=== PATIENT | male | born 1995 | race African-American/Black ===

== ENCOUNTER 2018-07-22 09:16 | Inpatient (IN) | payer MEDICAID, OTHER ==
[~2018-07-22] VITALS: Ht 177.8 cm; Wt 98.9 kg
[2018-07-22] VITALS (50 sets, daily range): BP systolic 50–166; BP diastolic 20–119
[2018-07-22] MEDS ORDERED: DEXAMETHASONE 10 MG/ML VIAL IV ONE (09:30)
[2018-07-22] MEDS ORDERED: CEFTRIAXONE 2 G PREMIX 50 ML IV ONE (09:30)
[2018-07-22] MEDS ORDERED: SODIUM CHLORIDE 0.9% 1000ML BAG (SEPSIS BOLUS) IV ONE (09:30)
[2018-07-22] MEDS: VANCOMYCIN 1 G PREMIX 200 ML IV SCH ×2 (09:30→15:43)
[2018-07-22 09:57] LABS: BG CARBOXYHEMOGLOBIN 0.6 % (0.5-1.5); BG DEOXYHEMOGLOBIN 1.5 % (0.0-5.0); BG FRACTION INSPIRED OXYGEN 21; BG METHEMOGLOBIN 0.4 % (0.0-1.5); BG OXYGEN SATURATION 98.5 % (92.0-98.5); BG OXYHEMOGLOBIN 97.5 % (94.0-97.0); BG PCO2 < 8.9 mmHg (35.0-45.0); BG PH 6.929 (7.350-7.450); BG PO2 153.8 mmHg (75.0-100.0); BG SAMPLE SITE RIGHT RADIAL; BG TOTAL HEMOGLOBIN 15.3 g/dL (12.0-18.0); BG VENT MODE ROOM AIR
[2018-07-22] MEDS ORDERED: SODIUM BICARBONATE 8.4% 1 MEQ/ML 50ML SYR IV ONE (10:00)
[2018-07-22 10:10] LABS: HEMATOCRIT. 48.4 % (42.0-52.0); HEMOGLOBIN. 14.7 g/dL (14.0-18.0); MEAN CORPUSCULAR HEMOGLOBIN 26.6 pg (28.0-32.0); MEAN CORPUSCULAR VOLUME 87.6 fL (80.0-94.0); PLATELET 263 x1000/uL (130-400); RED BLOOD CELL COUNT 5.52 mill/uL (4.7-6.1); RED CELL DISTRIBUTION WIDTH 15.9 % (11.6-14.6)
[2018-07-22 10:15] LABS: CHLORIDE 96 mEq/L (98-107)
[2018-07-22 10:19] LABS: ETHANOL BLOOD < 10 mg/dL
[2018-07-22 10:28] LABS: BETA HYDROXYBUTYRATE 9.5 mMol/L (0.0-0.3)
[2018-07-22 10:29] LABS: CLARITY URINE CLEAR (CLEAR); COLOR URINE YELLOW (YELLOW); KETONES URINE 3+ (NEGATIVE); LEUKOCYTE ESTERASE URINE NEGATIVE (NEGATIVE); NITRITE URINE NEGATIVE (NEGATIVE); OCCULT BLOOD URINE 2+ (NEGATIVE); PH URINE 5.5 (4.5-8.0); PROTEIN URINE 1+ (NEGATIVE); SPECIFIC GRAVITY URINE 1.021 (1.005-1.030); UROBILINOGEN URINE 0.2 E.U./dL (0.2-1.0)
[2018-07-22 10:56] LABS: *AMPHETAMINES SCREEN URINE NEGATIVE (NEGATIVE); *BARBITURATES SCREEN URINE NEGATIVE (NEGATIVE); *BENZODIAZEPINES SCREEN URINE NEGATIVE (NEGATIVE)
[2018-07-22 10:57] LABS: *COCAINE SCREEN URINE NEGATIVE (NEGATIVE); CANNABINOID URINE SCREEN NEGATIVE (NEGATIVE); METHADONE URINE SCREEN NEGATIVE (NEGATIVE); OPIATES URINE SCREEN NEGATIVE (NEGATIVE); PHENCYCLIDINE URINE SCREEN NEGATIVE (NEGATIVE)
[2018-07-22 11:00] LABS: PLATELET ESTIMATE NORMAL
[2018-07-22] MEDS ORDERED: INSULIN REGULAR (DRIP) 100 UNITS in SODIUM CHLORIDE 0.9% 100 ML IV ONE (11:00)
[2018-07-22] MEDS ORDERED: KCL 20MEQ/100ML PREMIX 100 ML IV ONE (11:15)
[2018-07-22 11:28] LABS: PARTIAL THROMBOPLASTIN TIME 33.6 sec (23.4-31.0); PROTHROMBIN TIME 10.5 sec (9.1-11.1)
[2018-07-22] MEDS ORDERED: KCL 20MEQ/100ML PREMIX 100 ML IV NR (11:30)
[2018-07-22] MEDS ORDERED: NOREPINEPHRINE 4MG/250ML PMX 250 ML IV ONE ×2 (11:35→12:15)
[2018-07-22] MEDS ORDERED: SUCCINYLCHOLINE CHLORIDE 200MG/10ML IV ONE ×2 (12:00→15:06)
[2018-07-22] MEDS ORDERED: ETOMIDATE 2MG/ML 10ML VIAL IV ONE ×2 (12:00→15:06)
[2018-07-22] MEDS ORDERED: MIDAZOLAM HCL 50 MG in DEXTROSE 5% WATER 40 ML IV ONE (12:00)
[2018-07-22] MEDS: SODIUM CHLORIDE 0.9% 1,000 ML IV SCH ×3 (12:14→20:23)
[2018-07-22] MEDS ORDERED: PIPERACILLIN/TAZ 3.375G PREMIX 50 ML IV SCH (12:15)
[2018-07-22] MEDS ORDERED: ONDANSETRON HCL 4MG/2ML INJ IV PRN (12:15)
[2018-07-22] MEDS ORDERED: CEFTRIAXONE SODIUM 1 G/VIAL IM ONE (12:45)
[2018-07-22] MEDS ORDERED: LIDOCAINE HCL 1% 20ML VIAL (Pyxis) INJ INFIL ONE (12:45)
[2018-07-22 13:11] LABS: BG BASE EXCESS -29.7 mmol/L (-2.0-2.0); BG CARBOXYHEMOGLOBIN 0.1 % (0.5-1.5); BG DEOXYHEMOGLOBIN 0.3 % (0.0-5.0); BG FRACTION INSPIRED OXYGEN 100; BG HCO3 ACT 3.7 mmol/L (22.0-26.0); BG METHEMOGLOBIN 0.5 % (0.0-1.5); BG OXYGEN SATURATION 99.7 % (92.0-98.5); BG OXYHEMOGLOBIN 99.1 % (94.0-97.0); BG PCO2 22.5 mmHg (35.0-45.0); BG PH 6.831 (7.350-7.450); BG PO2 > 602.7 mmHg (75.0-100.0); BG SAMPLE SITE RIGHT RADIAL; BG TIDAL VOLUME(mL) 550 mL; BG TOTAL HEMOGLOBIN 14.2 g/dL (12.0-18.0); BG VENT MODE VENT - A/C; BG VENT RATE 20 set
[2018-07-22] MEDS ORDERED: IPRATROPIUM/ALBUTEROL 0.5-3(2.5)MG/3ML NEB HHN PRN (13:15)
[2018-07-22] MEDS ORDERED: SODIUM BICARBONATE 150 MEQ in DEXTROSE 5% WATER 1,000 ML IV SCH ×3 (13:30)
[2018-07-22] MEDS: SODIUM BICARBONATE 8.4% 1 MEQ/ML 50ML SYR IV NR ×2 (13:30→16:00)
[2018-07-22] MEDS ORDERED: INSULIN REGULAR (DRIP) 100 UNITS in SODIUM CHLORIDE 0.9% 100 ML IV NR (15:00)
[2018-07-22] MEDS ORDERED: VECURONIUM BROMIDE 10 MG/VIAL IV ONE (15:06)
[2018-07-22 16:41] LABS: BG BASE EXCESS -19.5 mmol/L (-2.0-2.0); BG CARBOXYHEMOGLOBIN 0.2 % (0.5-1.5); BG DEOXYHEMOGLOBIN 1.4 % (0.0-5.0); BG FRACTION INSPIRED OXYGEN 40; BG HCO3 ACT 8.5 mmol/L (22.0-26.0); BG METHEMOGLOBIN 0.4 % (0.0-1.5); BG OXYGEN SATURATION 98.6 % (92.0-98.5); BG PCO2 26.8 mmHg (35.0-45.0); BG PH 7.117 (7.350-7.450); BG PO2 146.5 mmHg (75.0-100.0); BG SAMPLE SITE RIGHT BRACHIAL; BG TIDAL VOLUME(mL) 550 mL; BG TOTAL HEMOGLOBIN 12.4 g/dL (12.0-18.0); BG VENT MODE VENT - A/C; BG VENT RATE 26 set
[2018-07-22] MEDS ORDERED: SODIUM BICARBONATE 8.4% 1 MEQ/ML 50ML SYR IV SCH (17:30)
[2018-07-22] MEDS ORDERED: NOREPINEPHRINE 4MG in DEXT 5% WATER 250ML IV PRN (17:45)
[2018-07-22] MEDS: SODIUM BICARBONATE 150 MEQ in DEXTROSE 5% WATER 1,000 ML IV SCH ×6 (17:47→21:53)
[2018-07-22] MEDS ORDERED: PHENYLEPHRINE 40 MG in DEXT 5% WATER 246 ML IV PRN (18:00)
[2018-07-22] MEDS ORDERED: DEXTROSE 50% WATER 50ML SYRINGE IV PRN ×2 (18:00)
[2018-07-22] MEDS: NOREPINEPHRINE 32 MG in DEXT 5% WATER 468 ML IV PRN (18:16)
[2018-07-22] MEDS ORDERED: PROPOFOL 10MG/ML 100ML 100 ML IV PRN (18:45)
[2018-07-22] MEDS ORDERED: MIDAZOLAM HCL 100 MG in DEXT 5% WATER 80 ML IV PRN (18:45)
[2018-07-22] MEDS: BLOOD SUGAR DIAGNOSTIC STRIP TEST SCH ×6 (18:45→23:00)
[2018-07-22] MEDS: CEFTRIAXONE 2 G in DEXTROSE 5% WATER 50 ML IV SCH (19:11)
[2018-07-22] MEDS ORDERED: VANCOMYCIN 1 G PREMIX 200 ML IV SCH (20:00)
[2018-07-22] MEDS: IPRATROPIUM/ALBUTEROL 0.5-3(2.5)MG/3ML NEB HHN SCH (20:09)
[2018-07-22] MEDS: VASOPRESSIN 10 UNIT in SODIUM CHLORIDE 0.9% 99.5 ML IV PRN (20:23)
[2018-07-22] MEDS: VANCOMYCIN 1250MG in DEXTROSE 5% WATER 250ML IV SCH (20:23)
[2018-07-22] MEDS: INSULIN REGULAR (DRIP) 100 UNITS in SODIUM CHLORIDE 0.9% 100 ML IV SCH (20:35)
[2018-07-22] MEDS ORDERED: CEFTRIAXONE 2 G PREMIX 50 ML IV SCH (21:00)
[2018-07-22 21:59] LABS: BG BASE EXCESS -10.8 mmol/L (-2.0-2.0); BG CARBOXYHEMOGLOBIN 0.3 % (0.5-1.5); BG DEOXYHEMOGLOBIN 1.2 % (0.0-5.0); BG FRACTION INSPIRED OXYGEN 40; BG HCO3 ACT 13.9 mmol/L (22.0-26.0); BG METHEMOGLOBIN 0.4 % (0.0-1.5); BG OXYGEN SATURATION 98.8 % (92.0-98.5); BG OXYHEMOGLOBIN 98.1 % (94.0-97.0); BG PCO2 27.6 mmHg (35.0-45.0); BG PH 7.319 (7.350-7.450); BG PO2 186.6 mmHg (75.0-100.0); BG SAMPLE SITE RIGHT BRACHIAL; BG TIDAL VOLUME(mL) 550 mL; BG TOTAL HEMOGLOBIN 11.7 g/dL (12.0-18.0); BG VENT MODE VENT - A/C; BG VENT RATE 30 set
[2018-07-22 22:20] LABS: CHLORIDE 113 mEq/L (98-107)
[2018-07-22] MEDS: PHENYLEPHRINE 80 MG in DEXT 5% WATER 492 ML IV PRN (22:26)
[2018-07-22] MEDS ORDERED: POTASSIUM CHLORIDE 20MEQ/PACKET PO NR ×2 (23:00)
[2018-07-23] VITALS (104 sets, daily range): BP systolic 65–132; BP diastolic 28–73
[2018-07-23] MEDS: VASOPRESSIN 10 UNIT in SODIUM CHLORIDE 0.9% 99.5 ML IV PRN ×3 (00:20→14:28)
[2018-07-23] MEDS: BLOOD SUGAR DIAGNOSTIC STRIP TEST SCH ×20 (01:00→23:00)
[2018-07-23] MEDS: IPRATROPIUM/ALBUTEROL 0.5-3(2.5)MG/3ML NEB HHN SCH ×4 (01:26→20:21)
[2018-07-23] MEDS ORDERED: POTASSIUM CHLORIDE INJ 40 MEQ in DEXT 5% WATER 250 ML IV NR ×3 (04:00)
[2018-07-23 04:01] LABS: CHLORIDE 115 mEq/L (98-107)
[2018-07-23 04:03] LABS: HEMATOCRIT. 26.4 % (42.0-52.0); MEAN CORPUSCULAR HEMOGLOBIN 26.6 pg (28.0-32.0); MEAN CORPUSCULAR VOLUME 81.4 fL (80.0-94.0); MEAN PLATELET VOLUME 9.2 fl (7.4-10.4); PLATELET 159 x1000/uL (130-400); RED BLOOD CELL COUNT 3.24 mill/uL (4.7-6.1); RED CELL DISTRIBUTION WIDTH 15.1 % (11.6-14.6)
[2018-07-23 04:11] LABS: HEMOGLOBIN. 8.6 g/dL (14.0-18.0)
[2018-07-23 04:27] LABS: PHOSPHORUS 0.1 mg/dL (2.5-4.9)
[2018-07-23] MEDS: VANCOMYCIN 1250MG in DEXTROSE 5% WATER 250ML IV SCH (04:38)
[2018-07-23] MEDS ORDERED: POTASSIUM CHLORIDE 20MEQ/PACKET PO SCH ×3 (05:00→09:00)
[2018-07-23] MEDS: POTASSIUM ACETATE 40 MEQ in SODIUM CHLORIDE 0.9% 1,000 ML IV SCH ×2 (05:08→09:22)
[2018-07-23] MEDS ORDERED: POTASSIUM CHLORIDE INJ 40 MEQ in DEXT 5% WATER 250 ML IV SCH ×2 (06:00→08:00)
[2018-07-23] MEDS ORDERED: SODIUM BICARBONATE 150 MEQ in SODIUM CHLORIDE 0.9% 1,000 ML IV SCH (06:30)
[2018-07-23] MEDS: PHENYLEPHRINE 80 MG in DEXT 5% WATER 492 ML IV PRN ×2 (06:36→14:23)
[2018-07-23 06:38] LABS: PLATELET ESTIMATE NORMAL
[2018-07-23] MEDS: CEFTRIAXONE 2 G in DEXTROSE 5% WATER 50 ML IV SCH ×2 (07:58→21:46)
[2018-07-23] MEDS ORDERED: POTASSIUM PHOS M BASIC D BASIC IV SCH (08:00)
[2018-07-23] MEDS ORDERED: SODIUM CHLORIDE 0.9% IV SCH (08:00)
[2018-07-23 08:06] LABS: BG BASE EXCESS -15.3 mmol/L (-2.0-2.0); BG CARBOXYHEMOGLOBIN 0.3 % (0.5-1.5); BG DEOXYHEMOGLOBIN 1.4 % (0.0-5.0); BG FRACTION INSPIRED OXYGEN 40; BG HCO3 ACT 9.6 mmol/L (22.0-26.0); BG METHEMOGLOBIN 0.5 % (0.0-1.5); BG OXYGEN SATURATION 98.6 % (92.0-98.5); BG OXYHEMOGLOBIN 97.8 % (94.0-97.0); BG PCO2 20.6 mmHg (35.0-45.0); BG PH 7.286 (7.350-7.450); BG PO2 206.7 mmHg (75.0-100.0); BG SAMPLE SITE RIGHT RADIAL; BG TIDAL VOLUME(mL) 550 mL; BG TOTAL HEMOGLOBIN 9.2 g/dL (12.0-18.0); BG VENT MODE VENT - A/C; BG VENT RATE 30 set
[2018-07-23] MEDS ORDERED: POTASSIUM CHLORIDE IV SCH (08:30)
[2018-07-23] MEDS ORDERED: [UNRECOGNIZED DRUG - OTHER] IV SCH (08:30)
[2018-07-23] MEDS ORDERED: SODIUM BICARBONATE IV SCH (08:30)
[2018-07-23] MEDS: INSULIN GLARGINE UD 100 UNITS/ML SYR SUBCUT SCH ×2 (09:06→22:46)
[2018-07-23 10:18] LABS: CHLORIDE 117 mEq/L (98-107)
[2018-07-23] MEDS ORDERED: SODIUM CHLORIDE 0.45% 1,000 ML IV ONE ×4 (10:45→23:30)
[2018-07-23] MEDS ORDERED: KCL 20MEQ/100ML PREMIX 100 ML IV SCH (12:00)
[2018-07-23] MEDS ORDERED: POTASSIUM CHLORIDE INJ 40 MEQ in SODIUM CHLORIDE 0.45% 1,000 ML IV SCH (12:00)
[2018-07-23 12:17] LABS: CHLORIDE 120 mEq/L (98-107)
[2018-07-23] MEDS: NOREPINEPHRINE 32 MG in DEXT 5% WATER 468 ML IV PRN (12:49)
[2018-07-23] MEDS ORDERED: POTASSIUM CHLORIDE 20MEQ/PACKET NG SCH (13:00)
[2018-07-23 13:03] LABS: PHOSPHORUS 1.1 mg/dL (2.5-4.9)
[2018-07-23 13:05] LABS: VANCOMYCIN TROUGH 31.4 ug/mL (5.0-10.0)
[2018-07-23 13:07] LABS: CREATINE KINASE MB FRACTION 62.9 ng/mL (0.5-3.6)
[2018-07-23] MEDS ORDERED: KCL 20MEQ/100ML PREMIX 100 ML IV NR ×2 (14:00→22:00)
[2018-07-23] MEDS ORDERED: POTASSIUM CHLORIDE INJ 40 MEQ in DEXT 5% WATER 250 ML IV ONE (15:00)
[2018-07-23] MEDS ORDERED: MAGNESIUM SULFATE 4G IN WATER 100ML PREMIX IV ONE (15:26)
[2018-07-23] MEDS ORDERED: CALCIUM CHLORIDE 1GM/10ML SYR IV ONE (15:26)
[2018-07-23] MEDS ORDERED: EPINEPHRINE 0.1MG/ML (1:10,000) 10ML SYR ONE (15:26)
[2018-07-23] MEDS ORDERED: POTASSIUM PHOS,M-BASIC-D-BASIC 15 MMOL in DEXT 5% WATER 245 ML IV NR (16:00)
[2018-07-23] MEDS ORDERED: SODIUM CHLORIDE 0.45% 1,000 ML IV SCH ×2 (16:26→18:15)
[2018-07-23] MEDS: KCL 20MEQ/100ML PREMIX 100 ML IV SCH ×2 (16:55→18:55)
[2018-07-23] MEDS: INSULIN REGULAR (DRIP) 100 UNITS in SODIUM CHLORIDE 0.9% 100 ML IV SCH (17:00)
[2018-07-23 17:07] LABS: CHLORIDE 121 mEq/L (98-107); HEMATOCRIT. 30.1 % (42.0-52.0); HEMOGLOBIN. 9.9 g/dL (14.0-18.0); MEAN CORPUSCULAR HEMOGLOBIN 26.1 pg (28.0-32.0); MEAN CORPUSCULAR VOLUME 79.7 fL (80.0-94.0); MEAN PLATELET VOLUME 9.1 fl (7.4-10.4); PLATELET 176 x1000/uL (130-400); RED BLOOD CELL COUNT 3.78 mill/uL (4.7-6.1); RED CELL DISTRIBUTION WIDTH 15.3 % (11.6-14.6)
[2018-07-23 17:16] LABS: T4 FREE 1.04 ng/dL (0.76-1.46)
[2018-07-23 18:26] LABS: PLATELET ESTIMATE NORMAL
[2018-07-23] MEDS ORDERED: DESMOPRESSIN ACETATE IVPB 1 MCG in SODIUM CHLORIDE 0.9% 50 ML IV NR (19:00)
[2018-07-23] MEDS: POTASSIUM CHLORIDE INJ 40 MEQ in SODIUM CHLORIDE 0.45% 1,000 ML IV SCH (19:58)
[2018-07-23 20:22] LABS: CHLORIDE 126 mEq/L (98-107)
[2018-07-23] MEDS ORDERED: VANCOMYCIN 1 G PREMIX 200 ML IV SCH (21:00)
[2018-07-23] MEDS: AMPICILLIN 2,000 MG in SODIUM CHLORIDE 0.9% 100 ML IV SCH (21:46)
[2018-07-24] VITALS (95 sets, daily range): BP systolic 86–124; BP diastolic 38–79
[2018-07-24] MEDS ORDERED: POTASSIUM CHLORIDE INJ 40 MEQ in DEXT 5% WATER 250 ML IV NR ×2
[2018-07-24] MEDS: BLOOD SUGAR DIAGNOSTIC STRIP TEST SCH ×17 (01:00→20:45)
[2018-07-24] MEDS: PHENYLEPHRINE 80 MG in DEXT 5% WATER 492 ML IV PRN (01:50)
[2018-07-24] MEDS: IPRATROPIUM/ALBUTEROL 0.5-3(2.5)MG/3ML NEB HHN SCH ×4 (01:56→20:01)
[2018-07-24] MEDS: POTASSIUM CHLORIDE INJ 40 MEQ in SODIUM CHLORIDE 0.45% 1,000 ML IV SCH ×3 (02:13→20:28)
[2018-07-24] MEDS: AMPICILLIN 2,000 MG in SODIUM CHLORIDE 0.9% 100 ML IV SCH ×4 (02:15→20:28)
[2018-07-24 02:26] LABS: CHLORIDE 126 mEq/L (98-107)
[2018-07-24 05:20] LABS: HEMOGLOBIN. 9.5 g/dL (14.0-18.0); MEAN CORPUSCULAR HEMOGLOBIN 26.4 pg (28.0-32.0); PLATELET 156 x1000/uL (130-400); RED BLOOD CELL COUNT 3.59 mill/uL (4.7-6.1); RED CELL DISTRIBUTION WIDTH 15.5 % (11.6-14.6)
[2018-07-24 05:35] LABS: CHLORIDE 129 mEq/L (98-107)
[2018-07-24 05:48] LABS: CREATINE KINASE MB FRACTION 52.9 ng/mL (0.5-3.6)
[2018-07-24 05:50] LABS: PHOSPHORUS 0.4 mg/dL (2.5-4.9)
[2018-07-24] MEDS: INSULIN REGULAR (DRIP) 100 UNITS in SODIUM CHLORIDE 0.9% 100 ML IV SCH ×2 (06:53→11:51)
[2018-07-24] MEDS ORDERED: DESMOPRESSIN ACETATE IVPB 1 MCG in SODIUM CHLORIDE 0.9% 50 ML IV NR ×2 (07:00→14:00)
[2018-07-24] MEDS ORDERED: POTASSIUM PHOS,M-BASIC-D-BASIC 20 MMOL in DEXT 5% WATER 243.3333 ML IV NR (07:00)
[2018-07-24] MEDS: NOREPINEPHRINE 32 MG in DEXT 5% WATER 468 ML IV PRN (07:58)
[2018-07-24 08:00] LABS: CREATINE KINASE 34329 IU/L (39-308)
[2018-07-24 08:11] LABS: CHLORIDE 130 mEq/L (98-107)
[2018-07-24 08:17] LABS: BG BASE EXCESS -5.8 mmol/L (-2.0-2.0); BG CARBOXYHEMOGLOBIN 0.3 % (0.5-1.5); BG DEOXYHEMOGLOBIN 1.4 % (0.0-5.0); BG FRACTION INSPIRED OXYGEN 40; BG HCO3 ACT 16.8 mmol/L (22.0-26.0); BG METHEMOGLOBIN 0.3 % (0.0-1.5); BG OXYGEN SATURATION 98.6 % (92.0-98.5); BG PCO2 23.6 mmHg (35.0-45.0); BG PO2 211.5 mmHg (75.0-100.0); BG SAMPLE SITE RIGHT RADIAL; BG TIDAL VOLUME(mL) 550 mL; BG TOTAL HEMOGLOBIN 8.8 g/dL (12.0-18.0); BG VENT MODE VENT - A/C; BG VENT RATE 30 set
[2018-07-24] MEDS ORDERED: SODIUM CHLORIDE 0.45% 1,000 ML IV NR (08:45)
[2018-07-24] MEDS: CEFTRIAXONE 2 G in DEXTROSE 5% WATER 50 ML IV SCH ×2 (09:13→20:30)
[2018-07-24] MEDS: INSULIN GLARGINE UD 100 UNITS/ML SYR SUBCUT SCH ×2 (09:39→21:46)
[2018-07-24] MEDS: VANCOMYCIN 1500MG in DEXTROSE 5% WATER 250ML IV SCH (11:44)
[2018-07-24 13:19] LABS: CHLORIDE 127 mEq/L (98-107)
[2018-07-24] MEDS: METRONIDAZOLE 500 MG PREMIX 100 ML IV SCH ×2 (14:56→21:45)
[2018-07-24] MEDS: ASPIRIN 81MG TABLET PO SCH (15:25)
[2018-07-24 16:23] LABS: PLATELET ESTIMATE NORMAL
[2018-07-24] MEDS: INSULIN LISPRO 100 UNITS/ML SUBCUT SCH ×2 (16:52→20:45)
[2018-07-24 22:40] LABS: CHLORIDE 122 mEq/L (98-107)
[2018-07-24 22:46] LABS: PHOSPHORUS 1.4 mg/dL (2.5-4.9)
[2018-07-25] VITALS (61 sets, daily range): BP systolic 90–124; BP diastolic 37–81
[2018-07-25] MEDS: IPRATROPIUM/ALBUTEROL 0.5-3(2.5)MG/3ML NEB HHN SCH ×3 (01:56→21:08)
[2018-07-25] MEDS: AMPICILLIN 2,000 MG in SODIUM CHLORIDE 0.9% 100 ML IV SCH ×4 (02:23→20:07)
[2018-07-25] MEDS: METRONIDAZOLE 500 MG PREMIX 100 ML IV SCH ×3 (05:03→22:05)
[2018-07-25 05:30] LABS: BASOPHILS % 0.2 % (0.0-2.0); HEMATOCRIT. 25.5 % (42.0-52.0); HEMOGLOBIN. 8.2 g/dL (14.0-18.0); LYMPHOCYTES % 7.8 % (20.0-50.0); MEAN CORPUSCULAR HEMOGLOBIN 26.1 pg (28.0-32.0); MEAN CORPUSCULAR VOLUME 81.5 fL (80.0-94.0); MEAN PLATELET VOLUME 10.6 fl (7.4-10.4); MONOCYTES % 7.8 % (2.0-8.0); NEUTROPHILS % 84.2 % (40.0-76.0); PLATELET 141 x1000/uL (130-400); RED BLOOD CELL COUNT 3.13 mill/uL (4.7-6.1); RED CELL DISTRIBUTION WIDTH 16.4 % (11.6-14.6)
[2018-07-25 05:33] LABS: CHLORIDE 121 mEq/L (98-107)
[2018-07-25] MEDS: PROPOFOL 10MG/ML 100ML 100 ML IV PRN ×3 (05:37→16:28)
[2018-07-25 05:41] LABS: PHOSPHORUS 1.6 mg/dL (2.5-4.9)
[2018-07-25] MEDS: VANCOMYCIN 1500MG in DEXTROSE 5% WATER 250ML IV SCH (06:30)
[2018-07-25] MEDS: BLOOD SUGAR DIAGNOSTIC STRIP TEST SCH ×4 (06:30→21:00)
[2018-07-25 07:58] LABS: BG BASE EXCESS -11.7 mmol/L (-2.0-2.0); BG CARBOXYHEMOGLOBIN 0.2 % (0.5-1.5); BG DEOXYHEMOGLOBIN 1.7 % (0.0-5.0); BG FRACTION INSPIRED OXYGEN 40; BG HCO3 ACT 10.5 mmol/L (22.0-26.0); BG METHEMOGLOBIN 0.6 % (0.0-1.5); BG OXYGEN SATURATION 98.3 % (92.0-98.5); BG OXYHEMOGLOBIN 97.5 % (94.0-97.0); BG PCO2 16.1 mmHg (35.0-45.0); BG PH 7.433 (7.350-7.450); BG PO2 179.4 mmHg (75.0-100.0); BG SAMPLE SITE RIGHT RADIAL; BG TIDAL VOLUME(mL) 550 mL; BG TOTAL HEMOGLOBIN 9.7 g/dL (12.0-18.0); BG VENT MODE VENT - A/C; BG VENT RATE 24 set
[2018-07-25] MEDS: ASPIRIN 81MG TABLET PO SCH (08:15)
[2018-07-25] MEDS ORDERED: DEXTROSE 50% WATER 50ML SYRINGE IV PRN (08:15)
[2018-07-25] MEDS ORDERED: INSULIN LISPRO 100 UNITS/ML SUBCUT NR (08:16)
[2018-07-25] MEDS: INSULIN GLARGINE UD 100 UNITS/ML SYR SUBCUT SCH ×2 (08:59→22:07)
[2018-07-25] MEDS: CEFTRIAXONE 2 G in DEXTROSE 5% WATER 50 ML IV SCH ×2 (08:59→22:05)
[2018-07-25] MEDS ORDERED: POTASSIUM CHLORIDE INJ 20 MEQ in SODIUM CHLORIDE 0.45% 1,000 ML IV SCH (09:12)
[2018-07-25] MEDS ORDERED: SODIUM CHLORIDE 0.45% 1,000 ML IV ONE (09:15)
[2018-07-25] MEDS ORDERED: DESMOPRESSIN ACETATE IV SCH (10:00)
[2018-07-25] MEDS ORDERED: POTASSIUM PHOS,M-BASIC-D-BASIC 20 MMOL in DEXT 5% WATER 243.3333 ML IV SCH (10:00)
[2018-07-25] MEDS ORDERED: SODIUM CHLORIDE 0.9% IV SCH (10:00)
[2018-07-25] MEDS: INSULIN LISPRO 100 UNITS/ML SUBCUT SCH ×5 (13:06→22:06)
[2018-07-25] MEDS ORDERED: PROPOFOL 10MG/ML 100ML 100 ML IV PRN (15:15)
[2018-07-25] MEDS: SODIUM CHL 0.45% + KCL 20MEQ/L 1,000 ML IV SCH ×2 (17:30→22:08)
[2018-07-25 17:33] LABS: BG BASE EXCESS -4.5 mmol/L (-2.0-2.0); BG CARBOXYHEMOGLOBIN 0.3 % (0.5-1.5); BG DEOXYHEMOGLOBIN 1.5 % (0.0-5.0); BG FRACTION INSPIRED OXYGEN 40; BG HCO3 ACT 17.9 mmol/L (22.0-26.0); BG METHEMOGLOBIN 0.5 % (0.0-1.5); BG OXYGEN SATURATION 98.5 % (92.0-98.5); BG OXYHEMOGLOBIN 97.7 % (94.0-97.0); BG PCO2 24.5 mmHg (35.0-45.0); BG PH 7.482 (7.350-7.450); BG PO2 182.4 mmHg (75.0-100.0); BG SAMPLE SITE RIGHT BRACHIAL; BG TIDAL VOLUME(mL) 550 mL; BG TOTAL HEMOGLOBIN 9.4 g/dL (12.0-18.0); BG VENT MODE VENT - A/C; BG VENT RATE 16 set
[2018-07-25 22:36] LABS: CHLORIDE 122 mEq/L (98-107)
[2018-07-26] VITALS (36 sets, daily range): BP systolic 84–122; BP diastolic 31–77
[2018-07-26] MEDS: IPRATROPIUM/ALBUTEROL 0.5-3(2.5)MG/3ML NEB HHN SCH ×4 (01:15→20:55)
[2018-07-26] MEDS: AMPICILLIN 2,000 MG in SODIUM CHLORIDE 0.9% 100 ML IV SCH ×3 (02:58→13:56)
[2018-07-26] MEDS: SODIUM CHL 0.45% + KCL 20MEQ/L 1,000 ML IV SCH (05:33)
[2018-07-26] MEDS: METRONIDAZOLE 500 MG PREMIX 100 ML IV SCH ×3 (05:33→21:17)
[2018-07-26 05:38] LABS: BASOPHILS % 0.1 % (0.0-2.0); EOSINOPHILS % 0.3 % (0.0-5.0); HEMATOCRIT. 25.3 % (42.0-52.0); HEMOGLOBIN. 8.3 g/dL (14.0-18.0); LYMPHOCYTES % 7.4 % (20.0-50.0); MEAN CORPUSCULAR HEMOGLOBIN 26.8 pg (28.0-32.0); MEAN CORPUSCULAR VOLUME 81.9 fL (80.0-94.0); MEAN PLATELET VOLUME 9.9 fl (7.4-10.4); NEUTROPHILS % 81.2 % (40.0-76.0); PLATELET 146 x1000/uL (130-400); RED BLOOD CELL COUNT 3.09 mill/uL (4.7-6.1)
[2018-07-26 05:46] LABS: CHLORIDE 119 mEq/L (98-107)
[2018-07-26] MEDS: BLOOD SUGAR DIAGNOSTIC STRIP TEST SCH ×4 (06:19→21:07)
[2018-07-26] MEDS: INSULIN LISPRO 100 UNITS/ML SUBCUT SCH ×7 (06:26→21:16)
[2018-07-26 07:48] LABS: BG BASE EXCESS -4.4 mmol/L (-2.0-2.0); BG CARBOXYHEMOGLOBIN 0.2 % (0.5-1.5); BG DEOXYHEMOGLOBIN 1.2 % (0.0-5.0); BG HCO3 ACT 18.5 mmol/L (22.0-26.0); BG METHEMOGLOBIN 0.3 % (0.0-1.5); BG OXYGEN SATURATION 98.8 % (92.0-98.5); BG OXYHEMOGLOBIN 98.3 % (94.0-97.0); BG PCO2 26.1 mmHg (35.0-45.0); BG PH 7.468 (7.350-7.450); BG PO2 164.8 mmHg (75.0-100.0); BG SAMPLE SITE RIGHT BRACHIAL; BG TIDAL VOLUME(mL) 550 mL; BG TOTAL HEMOGLOBIN 8.6 g/dL (12.0-18.0); BG VENT MODE VENT - A/C; BG VENT RATE 16 set
[2018-07-26] MEDS: ASPIRIN 81MG TABLET PO SCH (08:28)
[2018-07-26] MEDS ORDERED: SODIUM CHLORIDE 0.45% 1,000 ML IV NR (09:00)
[2018-07-26] MEDS ORDERED: POTASSIUM PHOS,M-BASIC-D-BASIC 15 MMOL in DEXT 5% WATER 245 ML IV SCH (09:00)
[2018-07-26] MEDS: CEFTRIAXONE 2 G in DEXTROSE 5% WATER 50 ML IV SCH ×2 (10:02→21:16)
[2018-07-26] MEDS: INSULIN GLARGINE UD 100 UNITS/ML SYR SUBCUT SCH ×2 (10:03→21:20)
[2018-07-26] MEDS: DEXT 5% WATER + KCL 20MEQ/L 1,000 ML IV SCH (12:42)
[2018-07-26] MEDS ORDERED: POTASSIUM CHLORIDE 20MEQ/PACKET NG NR (14:30)
[2018-07-26 14:33] LABS: BG BASE EXCESS 0.5 mmol/L (-2.0-2.0); BG CARBOXYHEMOGLOBIN 0.3 % (0.5-1.5); BG CPAP (cmH2O) 0 cm(H2O); BG HCO3 ACT 23.2 mmol/L (22.0-26.0); BG METHEMOGLOBIN 0.4 % (0.0-1.5); BG OXYHEMOGLOBIN 96.3 % (94.0-97.0); BG PCO2 29.3 mmHg (35.0-45.0); BG PH 7.516 (7.350-7.450); BG PO2 93.1 mmHg (75.0-100.0); BG SAMPLE SITE RIGHT RADIAL; BG TOTAL HEMOGLOBIN 7.7 g/dL (12.0-18.0); BG VENT MODE VENT - CPAP
[2018-07-26 15:29] LABS: CHLORIDE 117 mEq/L (98-107)
[2018-07-26] MEDS ORDERED: DESMOPRESSIN ACETATE IVPB 2 MCG in SODIUM CHLORIDE 0.9% 50 ML IV NR (15:30)
[2018-07-26] MEDS: VANCOMYCIN 1500MG in DEXTROSE 5% WATER 250ML IV SCH ×3 (17:56)
[2018-07-26] MEDS: PROPOFOL 10MG/ML 100ML 100 ML IV SCH (20:57)
[2018-07-26 22:58] LABS: CHLORIDE 114 mEq/L (98-107)
[2018-07-27] VITALS (91 sets, daily range): BP systolic 79–135; BP diastolic 31–92
[2018-07-27] MEDS: DEXT 5% WATER + KCL 20MEQ/L 1,000 ML IV SCH ×2 (00:52→20:31)
[2018-07-27] MEDS: PROPOFOL 10MG/ML 100ML 100 ML IV SCH ×3 (00:52→08:44)
[2018-07-27] MEDS: IPRATROPIUM/ALBUTEROL 0.5-3(2.5)MG/3ML NEB HHN SCH ×4 (02:03→21:02)
[2018-07-27 05:41] LABS: HEMATOCRIT. 21.6 % (42.0-52.0); HEMOGLOBIN. 7.1 g/dL (14.0-18.0); MEAN CORPUSCULAR HEMOGLOBIN 27.3 pg (28.0-32.0); MEAN CORPUSCULAR VOLUME 83.2 fL (80.0-94.0); MEAN PLATELET VOLUME 9.7 fl (7.4-10.4); PLATELET 171 x1000/uL (130-400); RED BLOOD CELL COUNT 2.59 mill/uL (4.7-6.1); RED CELL DISTRIBUTION WIDTH 15.8 % (11.6-14.6)
[2018-07-27 05:43] LABS: CHLORIDE 113 mEq/L (98-107)
[2018-07-27 05:50] LABS: PHOSPHORUS 1.8 mg/dL (2.5-4.9)
[2018-07-27] MEDS: INSULIN LISPRO 100 UNITS/ML SUBCUT SCH ×7 (06:33→21:27)
[2018-07-27] MEDS: BLOOD SUGAR DIAGNOSTIC STRIP TEST SCH ×4 (06:35→21:27)
[2018-07-27] MEDS: METRONIDAZOLE 500 MG PREMIX 100 ML IV SCH ×3 (06:35→21:25)
[2018-07-27] MEDS ORDERED: POTASSIUM CHLORIDE 20MEQ/PACKET PO NR (08:00)
[2018-07-27] MEDS: ASPIRIN 81MG TABLET PO SCH (08:45)
[2018-07-27] MEDS: CEFTRIAXONE 2 G in DEXTROSE 5% WATER 50 ML IV SCH ×2 (08:45→21:25)
[2018-07-27] MEDS ORDERED: POTASSIUM PHOS,M-BASIC-D-BASIC 20 MMOL in DEXT 5% WATER 250 ML IV NR (09:00)
[2018-07-27] MEDS ORDERED: MAGNESIUM 2 G PREMIX 50 ML IV NR (09:00)
[2018-07-27] MEDS: INSULIN GLARGINE UD 100 UNITS/ML SYR SUBCUT SCH ×2 (09:45→21:29)
[2018-07-27] MEDS ORDERED: LORAZEPAM 2MG/ML CPJ IV PRN ×2 (10:00→17:30)
[2018-07-27] MEDS ORDERED: MORPHINE SULFATE 4 MG/ML CPJ (NOT FOR IM USE) IV PRN (10:00)
[2018-07-27 10:56] LABS: NUCLEATED RED BLOOD CELLS 4 /100 WBC
[2018-07-27 10:57] LABS: PLATELET ESTIMATE NORMAL
[2018-07-27 11:29] LABS: BG BASE EXCESS 1.8 mmol/L (-2.0-2.0); BG CARBOXYHEMOGLOBIN 0.5 % (0.5-1.5); BG DEOXYHEMOGLOBIN 1.3 % (0.0-5.0); BG FRACTION INSPIRED OXYGEN 35; BG HCO3 ACT 24.8 mmol/L (22.0-26.0); BG METHEMOGLOBIN 0.6 % (0.0-1.5); BG OXYGEN SATURATION 98.7 % (92.0-98.5); BG OXYHEMOGLOBIN 97.6 % (94.0-97.0); BG PH 7.508 (7.350-7.450); BG PO2 143.8 mmHg (75.0-100.0); BG SAMPLE SITE LEFT RADIAL; BG TIDAL VOLUME(mL) 550 mL; BG TOTAL HEMOGLOBIN 7.4 g/dL (12.0-18.0); BG VENT MODE VENT - A/C; BG VENT RATE 12 set
[2018-07-27] MEDS: VANCOMYCIN 1500MG in DEXTROSE 5% WATER 250ML IV SCH (13:11)
[2018-07-27 13:43] LABS: BG BASE EXCESS 1.1 mmol/L (-2.0-2.0); BG CARBOXYHEMOGLOBIN 0.8 % (0.5-1.5); BG DEOXYHEMOGLOBIN 2.3 % (0.0-5.0); BG FRACTION INSPIRED OXYGEN 35; BG METHEMOGLOBIN 0.6 % (0.0-1.5); BG OXYGEN SATURATION 97.7 % (92.0-98.5); BG OXYHEMOGLOBIN 96.3 % (94.0-97.0); BG PCO2 30.7 mmHg (35.0-45.0); BG PH 7.511 (7.350-7.450); BG PO2 100.3 mmHg (75.0-100.0); BG PRESSURE SUPPORT 8; BG SAMPLE SITE LEFT RADIAL; BG TOTAL HEMOGLOBIN 7.1 g/dL (12.0-18.0); BG VENT MODE VENT - CPAP
[2018-07-27 14:45] LABS: CHLORIDE 110 mEq/L (98-107)
[2018-07-27] MEDS: DESMOPRESSIN ACETATE IVPB 2 MCG in SODIUM CHLORIDE 0.9% 50 ML IV SCH (16:08)
[2018-07-27] MEDS ORDERED: SODIUM CHLORIDE 0.9% 1,000 ML IV ONE (20:15)
[2018-07-27] MEDS: ACETAMINOPHEN 650MG/20.3ML UDC NG PRN (20:29)
[2018-07-28] VITALS (104 sets, daily range): BP systolic 76–131; BP diastolic 31–91
[2018-07-28 00:25] LABS: CHLORIDE 109 mEq/L (98-107)
[2018-07-28] MEDS: VANCOMYCIN 1500MG in DEXTROSE 5% WATER 250ML IV SCH ×3 (01:02→23:19)
[2018-07-28] MEDS: IPRATROPIUM/ALBUTEROL 0.5-3(2.5)MG/3ML NEB HHN SCH ×4 (02:43→21:10)
[2018-07-28 05:58] LABS: CHLORIDE 106 mEq/L (98-107)
[2018-07-28] MEDS: METRONIDAZOLE 500 MG PREMIX 100 ML IV SCH (05:59)
[2018-07-28] MEDS: BLOOD SUGAR DIAGNOSTIC STRIP TEST SCH ×4 (06:00→21:27)
[2018-07-28] MEDS: INSULIN LISPRO 100 UNITS/ML SUBCUT SCH ×7 (06:01→21:36)
[2018-07-28 06:09] LABS: PHOSPHORUS 3.2 mg/dL (2.5-4.9)
[2018-07-28 07:15] LABS: HEMATOCRIT. 22.7 % (42.0-52.0); HEMOGLOBIN. 7.1 g/dL (14.0-18.0); MEAN CORPUSCULAR HEMOGLOBIN 27.6 pg (28.0-32.0); MEAN CORPUSCULAR VOLUME 88.4 fL (80.0-94.0); PLATELET 210 x1000/uL (130-400); RED BLOOD CELL COUNT 2.57 mill/uL (4.7-6.1)
[2018-07-28 09:01] LABS: NUCLEATED RED BLOOD CELLS 8 /100 WBC; PLATELET ESTIMATE NORMAL
[2018-07-28] MEDS: PROPOFOL 10MG/ML 100ML 100 ML IV PRN ×2 (09:40→20:52)
[2018-07-28] MEDS: CEFTRIAXONE 2 G in DEXTROSE 5% WATER 50 ML IV SCH ×2 (10:07→21:33)
[2018-07-28] MEDS: POTASSIUM CHLORIDE 20MEQ/PACKET PO SCH ×2 (10:07→18:47)
[2018-07-28] MEDS: INSULIN GLARGINE UD 100 UNITS/ML SYR SUBCUT SCH ×2 (10:09→21:36)
[2018-07-28] MEDS: ACETAMINOPHEN 650MG/20.3ML UDC NG PRN (10:34)
[2018-07-28 11:00] LABS: BG BASE EXCESS 2.9 mmol/L (-2.0-2.0); BG CARBOXYHEMOGLOBIN 0.3 % (0.5-1.5); BG DEOXYHEMOGLOBIN 1.8 % (0.0-5.0); BG FRACTION INSPIRED OXYGEN 100; BG HCO3 ACT 26.4 mmol/L (22.0-26.0); BG METHEMOGLOBIN 1.1 % (0.0-1.5); BG OXYGEN SATURATION 98.2 % (92.0-98.5); BG OXYHEMOGLOBIN 96.8 % (94.0-97.0); BG PCO2 35.6 mmHg (35.0-45.0); BG PH 7.488 (7.350-7.450); BG PO2 134.7 mmHg (75.0-100.0); BG SAMPLE SITE RIGHT RADIAL; BG TIDAL VOLUME(mL) 550 mL; BG TOTAL HEMOGLOBIN 7.3 g/dL (12.0-18.0); BG VENT MODE VENT - A/C; BG VENT RATE 16 set
[2018-07-28] MEDS: DESMOPRESSIN ACETATE IVPB 2 MCG in SODIUM CHLORIDE 0.9% 50 ML IV SCH (12:00)
[2018-07-28] MEDS ORDERED: VECURONIUM BROMIDE 10 MG/VIAL IV ONE (13:39)
[2018-07-28] MEDS ORDERED: SODIUM CHLORIDE 0.9% 10ML VIAL ONE (13:39)
[2018-07-28] MEDS ORDERED: ETOMIDATE 2MG/ML 10ML VIAL IV ONE (13:39)
[2018-07-28] MEDS ORDERED: ACETAMINOPHEN 650MG/20.3ML UDC PO NR (14:30)
[2018-07-28 15:51] LABS: CHLORIDE 109 mEq/L (98-107)
[2018-07-28 23:31] LABS: CHLORIDE 112 mEq/L (98-107)
[2018-07-29] VITALS (109 sets, daily range): BP systolic 76–143; BP diastolic 18–85
[2018-07-29] MEDS: METRONIDAZOLE 500 MG PREMIX 100 ML IV SCH ×3 (01:05→19:08)
[2018-07-29] MEDS: IPRATROPIUM/ALBUTEROL 0.5-3(2.5)MG/3ML NEB HHN SCH ×4 (02:13→19:50)
[2018-07-29] MEDS: BLOOD SUGAR DIAGNOSTIC STRIP TEST SCH ×4 (05:59→21:08)
[2018-07-29] MEDS: INSULIN LISPRO 100 UNITS/ML SUBCUT SCH ×7 (06:04→21:20)
[2018-07-29] MEDS: PROPOFOL 10MG/ML 100ML 100 ML IV PRN ×3 (06:11→19:57)
[2018-07-29 06:14] LABS: HEMATOCRIT. 22.9 % (42.0-52.0); HEMOGLOBIN. 7.4 g/dL (14.0-18.0); MEAN CORPUSCULAR HEMOGLOBIN 28.4 pg (28.0-32.0); MEAN CORPUSCULAR VOLUME 88.3 fL (80.0-94.0); MEAN PLATELET VOLUME 9.7 fl (7.4-10.4); PLATELET 225 x1000/uL (130-400); RED BLOOD CELL COUNT 2.59 mill/uL (4.7-6.1); RED CELL DISTRIBUTION WIDTH 14.7 % (11.6-14.6)
[2018-07-29 06:29] LABS: CHLORIDE 109 mEq/L (98-107)
[2018-07-29 06:50] LABS: PHOSPHORUS 2.8 mg/dL (2.5-4.9)
[2018-07-29 07:12] LABS: NUCLEATED RED BLOOD CELLS 1 /100 WBC
[2018-07-29 07:13] LABS: PLATELET ESTIMATE NORMAL
[2018-07-29 08:23] LABS: BG BASE EXCESS 2.7 mmol/L (-2.0-2.0); BG CARBOXYHEMOGLOBIN 0.3 % (0.5-1.5); BG DEOXYHEMOGLOBIN 5.1 % (0.0-5.0); BG METHEMOGLOBIN 0.4 % (0.0-1.5); BG OXYGEN SATURATION 94.9 % (92.0-98.5); BG OXYHEMOGLOBIN 94.2 % (94.0-97.0); BG PCO2 34.8 mmHg (35.0-45.0); BG PH 7.492 (7.350-7.450); BG PO2 82.5 mmHg (75.0-100.0); BG SAMPLE SITE RIGHT RADIAL; BG TIDAL VOLUME(mL) 550 mL; BG TOTAL HEMOGLOBIN 7.9 g/dL (12.0-18.0); BG VENT MODE VENT - A/C; BG VENT RATE 14 set
[2018-07-29 08:32] LABS: T4 FREE 1.53 ng/dL (0.76-1.46)
[2018-07-29] MEDS: POTASSIUM CHLORIDE 20MEQ/PACKET PO SCH ×2 (09:49→19:06)
[2018-07-29] MEDS: ACETAMINOPHEN 650MG/20.3ML UDC NG PRN ×2 (09:50→23:55)
[2018-07-29] MEDS: CEFTRIAXONE 2 G in DEXTROSE 5% WATER 50 ML IV SCH ×2 (09:50→21:17)
[2018-07-29] MEDS ORDERED: SODIUM CHLORIDE 0.9% 500 ML IV ONE (10:00)
[2018-07-29] MEDS: INSULIN GLARGINE UD 100 UNITS/ML SYR SUBCUT SCH ×2 (10:47→21:21)
[2018-07-29] MEDS: DESMOPRESSIN ACETATE IVPB 2 MCG in SODIUM CHLORIDE 0.9% 50 ML IV SCH (11:38)
[2018-07-29] MEDS: VANCOMYCIN 1,750 MG in DEXT 5% WATER 500 ML IV SCH ×2 (13:31→21:18)
[2018-07-29] MEDS: PANTOPRAZOLE SODIUM 40 MG/VIAL IV SCH (13:39)
[2018-07-29] MEDS ORDERED: METOPROLOL TARTRATE 25MG TABLET PO SCH ×2 (14:12→15:15)
[2018-07-29 15:22] LABS: CHLORIDE 110 mEq/L (98-107)
[2018-07-29] MEDS ORDERED: METOPROLOL TARTRATE 25MG TABLET NG NR (21:00)
[2018-07-29 22:00] LABS: CLARITY URINE CLOUDY (CLEAR); COLOR URINE YELLOW (YELLOW); KETONES URINE 1+ (NEGATIVE); LEUKOCYTE ESTERASE URINE NEGATIVE (NEGATIVE); NITRITE URINE NEGATIVE (NEGATIVE); OCCULT BLOOD URINE 2+ (NEGATIVE); PH URINE 5.5 (4.5-8.0); PROTEIN URINE 1+ (NEGATIVE); SPECIFIC GRAVITY URINE 1.031 (1.005-1.030); UROBILINOGEN URINE 0.2 E.U./dL (0.2-1.0)
[2018-07-30] VITALS (102 sets, daily range): BP systolic 89–160; BP diastolic 35–123
[2018-07-30] MEDS: IPRATROPIUM/ALBUTEROL 0.5-3(2.5)MG/3ML NEB HHN SCH ×4 (01:55→19:56)
[2018-07-30] MEDS: METRONIDAZOLE 500 MG PREMIX 100 ML IV SCH ×3 (01:56→19:13)
[2018-07-30] MEDS: PROPOFOL 10MG/ML 100ML 100 ML IV PRN ×2 (01:56→19:13)
[2018-07-30 05:44] LABS: BASOPHILS % 0.2 % (0.0-2.0); HEMATOCRIT. 22.1 % (42.0-52.0); LYMPHOCYTES % 13.4 % (20.0-50.0); MEAN CORPUSCULAR HEMOGLOBIN 28.2 pg (28.0-32.0); MEAN CORPUSCULAR VOLUME 89.3 fL (80.0-94.0); MEAN PLATELET VOLUME 9.7 fl (7.4-10.4); MONOCYTES % 5.8 % (2.0-8.0); NEUTROPHILS % 79.6 % (40.0-76.0); PLATELET 240 x1000/uL (130-400); RED BLOOD CELL COUNT 2.47 mill/uL (4.7-6.1); RED CELL DISTRIBUTION WIDTH 14.5 % (11.6-14.6)
[2018-07-30 05:57] LABS: CHLORIDE 106 mEq/L (98-107)
[2018-07-30] MEDS: BLOOD SUGAR DIAGNOSTIC STRIP TEST SCH ×4 (05:59→21:13)
[2018-07-30] MEDS: INSULIN LISPRO 100 UNITS/ML SUBCUT SCH ×7 (06:09→21:34)
[2018-07-30 08:21] LABS: BG BASE EXCESS 3.3 mmol/L (-2.0-2.0); BG CARBOXYHEMOGLOBIN 0.3 % (0.5-1.5); BG DEOXYHEMOGLOBIN 6.1 % (0.0-5.0); BG FRACTION INSPIRED OXYGEN 40; BG HCO3 ACT 26.7 mmol/L (22.0-26.0); BG METHEMOGLOBIN 0.6 % (0.0-1.5); BG OXYGEN SATURATION 93.8 % (92.0-98.5); BG PCO2 35.3 mmHg (35.0-45.0); BG PH 7.497 (7.350-7.450); BG PO2 72.1 mmHg (75.0-100.0); BG SAMPLE SITE RIGHT BRACHIAL; BG TIDAL VOLUME(mL) 550 mL; BG TOTAL HEMOGLOBIN 7.8 g/dL (12.0-18.0); BG VENT MODE VENT - A/C; BG VENT RATE 14 set
[2018-07-30] MEDS: POTASSIUM CHLORIDE 20MEQ/PACKET PO SCH ×2 (08:45→16:38)
[2018-07-30] MEDS: METOPROLOL TARTRATE 50MG TABLET NG SCH ×2 (08:46→21:35)
[2018-07-30] MEDS: CEFTRIAXONE 2 G in DEXTROSE 5% WATER 50 ML IV SCH ×2 (08:47→21:33)
[2018-07-30] MEDS: PANTOPRAZOLE SODIUM 40 MG/VIAL IV SCH (08:47)
[2018-07-30] MEDS: VANCOMYCIN 1,750 MG in DEXT 5% WATER 500 ML IV SCH ×2 (09:00→21:34)
[2018-07-30 09:34] LABS: HAPTOGLOBIN 221 mg/dL (30-200)
[2018-07-30] MEDS: ACETAMINOPHEN 650MG/20.3ML UDC NG PRN ×2 (10:31→16:37)
[2018-07-30] MEDS ORDERED: SODIUM CHLORIDE 0.9% 500 ML IV ONE (12:00)
[2018-07-30] MEDS: SODIUM CHLORIDE 0.45% 1,000 ML IV SCH (12:17)
[2018-07-30] MEDS: INSULIN GLARGINE UD 100 UNITS/ML SYR SUBCUT SCH ×2 (12:48→21:35)
[2018-07-30] MEDS ORDERED: SODIUM CHLORIDE 0.45% 1,000 ML IV SCH (13:45)
[2018-07-30] MEDS ORDERED: SODIUM CHLORIDE 0.9% 500 ML IV SCH (13:45)
[2018-07-30] MEDS ORDERED: HEPARIN SODIUM 1,000 UNIT/1ML VIAL IV ONE (14:46)
[2018-07-30] MEDS: ZINC SULFATE 220 MG ( 50 ) CAPSULE PO SCH (16:37)
[2018-07-30] MEDS ORDERED: FLUCONAZOLE 400MG/200ML BAG 200 ML IV SCH (21:00)
[2018-07-30] MEDS: ASCORBIC ACID 500 MG TABLET PO SCH (21:35)
[2018-07-30] MEDS: FLUCONAZOLE 400MG/200ML BAG 200 ML IV SCH (23:53)
[2018-07-31] VITALS (98 sets, daily range): BP systolic 96–161; BP diastolic 43–128
[2018-07-31] MEDS: METRONIDAZOLE 500 MG PREMIX 100 ML IV SCH ×3 (01:59→17:44)
[2018-07-31] MEDS: IPRATROPIUM/ALBUTEROL 0.5-3(2.5)MG/3ML NEB HHN SCH ×4 (02:04→20:23)
[2018-07-31] MEDS: PROPOFOL 10MG/ML 100ML 100 ML IV PRN ×4 (04:44→23:33)
[2018-07-31] MEDS: BLOOD SUGAR DIAGNOSTIC STRIP TEST SCH ×4 (05:59→21:13)
[2018-07-31 06:05] LABS: MEAN CORPUSCULAR HEMOGLOBIN 28.6 pg (28.0-32.0); MEAN PLATELET VOLUME 10.1 fl (7.4-10.4); PLATELET 246 x1000/uL (130-400); RED BLOOD CELL COUNT 3.15 mill/uL (4.7-6.1); RED CELL DISTRIBUTION WIDTH 14.9 % (11.6-14.6)
[2018-07-31] MEDS: SODIUM CHLORIDE 0.45% 1,000 ML IV SCH (06:15)
[2018-07-31] MEDS: INSULIN LISPRO 100 UNITS/ML SUBCUT SCH ×6 (06:16→21:43)
[2018-07-31 06:17] LABS: CHLORIDE 103 mEq/L (98-107)
[2018-07-31 06:55] LABS: CREATINE KINASE 2115 IU/L (39-308)
[2018-07-31 08:45] LABS: BG BASE EXCESS 5.8 mmol/L (-2.0-2.0); BG CARBOXYHEMOGLOBIN 0.3 % (0.5-1.5); BG DEOXYHEMOGLOBIN 1.8 % (0.0-5.0); BG FRACTION INSPIRED OXYGEN 40; BG HCO3 ACT 29.4 mmol/L (22.0-26.0); BG METHEMOGLOBIN 0.1 % (0.0-1.5); BG OXYGEN SATURATION 98.2 % (92.0-98.5); BG OXYHEMOGLOBIN 97.8 % (94.0-97.0); BG PCO2 38.8 mmHg (35.0-45.0); BG PH 7.498 (7.350-7.450); BG PO2 124.3 mmHg (75.0-100.0); BG PRESSURE SUPPORT 14; BG SAMPLE SITE LEFT RADIAL; BG TIDAL VOLUME(mL) 550 mL; BG TOTAL HEMOGLOBIN 8.9 g/dL (12.0-18.0); BG VENT MODE VENT - SIMV; BG VENT RATE 8 set
[2018-07-31] MEDS ORDERED: LORAZEPAM 2MG/ML CPJ IV PRN (09:15)
[2018-07-31 09:32] LABS: NUCLEATED RED BLOOD CELLS 3 /100 WBC; PLATELET ESTIMATE NORMAL
[2018-07-31] MEDS: CEFTRIAXONE 2 G in DEXTROSE 5% WATER 50 ML IV SCH ×2 (09:41→20:51)
[2018-07-31] MEDS: PANTOPRAZOLE SODIUM 40 MG/VIAL IV SCH (09:41)
[2018-07-31] MEDS: ZINC SULFATE 220 MG ( 50 ) CAPSULE PO SCH (09:42)
[2018-07-31] MEDS: METOPROLOL TARTRATE 50MG TABLET NG SCH ×2 (09:42→20:52)
[2018-07-31] MEDS: ASCORBIC ACID 500 MG TABLET PO SCH ×2 (09:42→20:52)
[2018-07-31] MEDS: VANCOMYCIN 1,750 MG in DEXT 5% WATER 500 ML IV SCH ×2 (09:45→20:51)
[2018-07-31] MEDS: INSULIN GLARGINE UD 100 UNITS/ML SYR SUBCUT SCH ×2 (09:46→21:43)
[2018-07-31] MEDS ORDERED: ENOXAPARIN 30MG/0.3ML SYR SUBCUT SCH (10:30)
[2018-07-31] MEDS ORDERED: INSULIN LISPRO 100 UNITS/ML SUBCUT SCH (11:30)
[2018-07-31] MEDS: ASPIRIN 81MG TABLET PO SCH (12:09)
[2018-07-31] MEDS: ACETAMINOPHEN 650MG/20.3ML UDC NG PRN ×2 (17:52→22:11)
[2018-07-31] MEDS: FLUCONAZOLE 400MG/200ML BAG 200 ML IV SCH (22:11)
[2018-08-01] VITALS (98 sets, daily range): BP systolic 94–188; BP diastolic 38–102
[2018-08-01] MEDS: METRONIDAZOLE 500 MG PREMIX 100 ML IV SCH ×3 (01:52→17:53)
[2018-08-01] MEDS: IPRATROPIUM/ALBUTEROL 0.5-3(2.5)MG/3ML NEB HHN SCH ×4 (01:54→20:50)
[2018-08-01] MEDS: CLONIDINE 0.1MG TABLET NG PRN (02:37)
[2018-08-01] MEDS: PROPOFOL 10MG/ML 100ML 100 ML IV PRN ×4 (02:37→19:05)
[2018-08-01 05:44] LABS: HEMATOCRIT. 25.2 % (42.0-52.0); HEMOGLOBIN. 8.1 g/dL (14.0-18.0); MEAN CORPUSCULAR HEMOGLOBIN 28.3 pg (28.0-32.0); MEAN CORPUSCULAR VOLUME 88.1 fL (80.0-94.0); MEAN PLATELET VOLUME 9.4 fl (7.4-10.4); PLATELET 260 x1000/uL (130-400); RED BLOOD CELL COUNT 2.87 mill/uL (4.7-6.1); RED CELL DISTRIBUTION WIDTH 14.8 % (11.6-14.6)
[2018-08-01 05:51] LABS: CHLORIDE 99 mEq/L (98-107)
[2018-08-01 05:57] LABS: PHOSPHORUS 4.2 mg/dL (2.5-4.9)
[2018-08-01] MEDS ORDERED: INSULIN LISPRO 100 UNITS/ML SUBCUT SCH ×3 (06:30→16:30)
[2018-08-01] MEDS: BLOOD SUGAR DIAGNOSTIC STRIP TEST SCH ×4 (06:34→20:26)
[2018-08-01] MEDS: INSULIN LISPRO 100 UNITS/ML SUBCUT SCH ×6 (06:58→20:26)
[2018-08-01 08:45] LABS: BG BASE EXCESS 6.2 mmol/L (-2.0-2.0); BG CARBOXYHEMOGLOBIN 0.2 % (0.5-1.5); BG DEOXYHEMOGLOBIN 1.5 % (0.0-5.0); BG FRACTION INSPIRED OXYGEN 40; BG HCO3 ACT 30.1 mmol/L (22.0-26.0); BG METHEMOGLOBIN 0.3 % (0.0-1.5); BG OXYGEN SATURATION 98.5 % (92.0-98.5); BG PCO2 40.4 mmHg (35.0-45.0); BG PO2 129.3 mmHg (75.0-100.0); BG PRESSURE SUPPORT 14; BG SAMPLE SITE LEFT RADIAL; BG TIDAL VOLUME(mL) 550 mL; BG TOTAL HEMOGLOBIN 8.5 g/dL (12.0-18.0); BG VENT MODE VENT - SIMV; BG VENT RATE 8 set
[2018-08-01] MEDS: VANCOMYCIN 1,750 MG in DEXT 5% WATER 500 ML IV SCH ×2 (09:01→20:23)
[2018-08-01] MEDS: CEFTRIAXONE 2 G in DEXTROSE 5% WATER 50 ML IV SCH ×2 (09:01→20:23)
[2018-08-01] MEDS: PANTOPRAZOLE SODIUM 40 MG/VIAL IV SCH (09:01)
[2018-08-01] MEDS: ASCORBIC ACID 500 MG TABLET PO SCH ×2 (09:01→20:24)
[2018-08-01] MEDS: METOPROLOL TARTRATE 50MG TABLET NG SCH ×2 (09:02→20:24)
[2018-08-01] MEDS: ASPIRIN 81MG TABLET PO SCH (09:02)
[2018-08-01] MEDS: ZINC SULFATE 220 MG ( 50 ) CAPSULE PO SCH (09:02)
[2018-08-01] MEDS: INSULIN GLARGINE UD 100 UNITS/ML SYR SUBCUT SCH ×2 (10:32→23:02)
[2018-08-01 10:36] LABS: NUCLEATED RED BLOOD CELLS 1 /100 WBC; PLATELET ESTIMATE NORMAL
[2018-08-01] MEDS: ACETAMINOPHEN 650MG/20.3ML UDC NG PRN (15:43)
[2018-08-01] MEDS: MORPHINE SULFATE 4 MG/ML CPJ (NOT FOR IM USE) IV PRN (18:30)
[2018-08-01] MEDS: FLUCONAZOLE 400MG/200ML BAG 200 ML IV SCH (23:02)
[2018-08-02] VITALS (72 sets, daily range): BP systolic 81–188; BP diastolic 31–111
[2018-08-02] MEDS: MORPHINE SULFATE 4 MG/ML CPJ (NOT FOR IM USE) IV PRN (00:10)
[2018-08-02] MEDS: METRONIDAZOLE 500 MG PREMIX 100 ML IV SCH ×3 (01:31→17:34)
[2018-08-02] MEDS: IPRATROPIUM/ALBUTEROL 0.5-3(2.5)MG/3ML NEB HHN SCH ×4 (02:00→20:40)
[2018-08-02] MEDS: PROPOFOL 10MG/ML 100ML 100 ML IV PRN (02:45)
[2018-08-02 05:38] LABS: HEMATOCRIT. 23.8 % (42.0-52.0); HEMOGLOBIN. 7.7 g/dL (14.0-18.0); MEAN CORPUSCULAR HEMOGLOBIN 28.8 pg (28.0-32.0); MEAN CORPUSCULAR VOLUME 88.8 fL (80.0-94.0); MEAN PLATELET VOLUME 9.1 fl (7.4-10.4); PLATELET 287 x1000/uL (130-400); RED BLOOD CELL COUNT 2.68 mill/uL (4.7-6.1); RED CELL DISTRIBUTION WIDTH 15.2 % (11.6-14.6)
[2018-08-02] MEDS: BLOOD SUGAR DIAGNOSTIC STRIP TEST SCH ×4 (06:07→21:21)
[2018-08-02] MEDS: INSULIN LISPRO 100 UNITS/ML SUBCUT SCH ×7 (06:14→21:31)
[2018-08-02 06:24] LABS: CHLORIDE 102 mEq/L (98-107)
[2018-08-02 07:06] LABS: NUCLEATED RED BLOOD CELLS 1 /100 WBC; PLATELET ESTIMATE NORMAL
[2018-08-02] MEDS ORDERED: POTASSIUM CHLORIDE 20MEQ/PACKET PO NR (07:30)
[2018-08-02 07:58] LABS: PHOSPHORUS 4.2 mg/dL (2.5-4.9)
[2018-08-02] MEDS: PANTOPRAZOLE SODIUM 40 MG/VIAL IV SCH (08:29)
[2018-08-02] MEDS: CEFTRIAXONE 2 G in DEXTROSE 5% WATER 50 ML IV SCH ×2 (08:30→21:28)
[2018-08-02] MEDS: METOPROLOL TARTRATE 50MG TABLET NG SCH (08:30)
[2018-08-02] MEDS: ZINC SULFATE 220 MG ( 50 ) CAPSULE PO SCH (08:30)
[2018-08-02] MEDS: ASCORBIC ACID 500 MG TABLET PO SCH ×2 (08:30→21:28)
[2018-08-02] MEDS: VANCOMYCIN 1,750 MG in DEXT 5% WATER 500 ML IV SCH ×2 (08:31→21:28)
[2018-08-02 09:09] LABS: BG BASE EXCESS 6.3 mmol/L (-2.0-2.0); BG CARBOXYHEMOGLOBIN 0.3 % (0.5-1.5); BG DEOXYHEMOGLOBIN 1.5 % (0.0-5.0); BG FRACTION INSPIRED OXYGEN 40; BG HCO3 ACT 30.4 mmol/L (22.0-26.0); BG METHEMOGLOBIN 0.3 % (0.0-1.5); BG OXYGEN SATURATION 98.5 % (92.0-98.5); BG OXYHEMOGLOBIN 97.9 % (94.0-97.0); BG PCO2 41.6 mmHg (35.0-45.0); BG PH 7.481 (7.350-7.450); BG PO2 130.6 mmHg (75.0-100.0); BG PRESSURE SUPPORT 14; BG SAMPLE SITE RIGHT BRACHIAL; BG TIDAL VOLUME(mL) 550 mL; BG TOTAL HEMOGLOBIN 8.6 g/dL (12.0-18.0); BG VENT MODE VENT - SIMV; BG VENT RATE 6 set
[2018-08-02] MEDS: INSULIN GLARGINE UD 100 UNITS/ML SYR SUBCUT SCH ×2 (09:23→21:31)
[2018-08-02] MEDS: METOCLOPRAMIDE HCL 10MG/2ML VIAL IV SCH ×3 (12:14→23:07)
[2018-08-02 12:35] LABS: BG BASE EXCESS 4.4 mmol/L (-2.0-2.0); BG CARBOXYHEMOGLOBIN 0.1 % (0.5-1.5); BG DEOXYHEMOGLOBIN 1.9 % (0.0-5.0); BG FRACTION INSPIRED OXYGEN 40; BG HCO3 ACT 28.1 mmol/L (22.0-26.0); BG METHEMOGLOBIN 0.3 % (0.0-1.5); BG OXYGEN SATURATION 98.1 % (92.0-98.5); BG OXYHEMOGLOBIN 97.7 % (94.0-97.0); BG PCO2 38.5 mmHg (35.0-45.0); BG PEEP (cmH2O) 0 cmH2O; BG PH 7.481 (7.350-7.450); BG PO2 122.1 mmHg (75.0-100.0); BG SAMPLE SITE RIGHT RADIAL; BG TOTAL HEMOGLOBIN 9.9 g/dL (12.0-18.0); BG VENT MODE VENT - CPAP
[2018-08-02] MEDS ORDERED: LIDOCAINE HCL/PF 1% 2ML VIAL ONE (14:36)
[2018-08-02] MEDS: CLONIDINE 0.1MG TABLET NG PRN (18:19)
[2018-08-02] MEDS: METOPROLOL TARTRATE 100MG TABLET NG SCH (21:29)
[2018-08-02] MEDS: FLUCONAZOLE 400MG/200ML BAG 200 ML IV SCH (23:05)
[2018-08-03] VITALS (67 sets, daily range): BP systolic 107–176; BP diastolic 44–134
[2018-08-03] MEDS: METRONIDAZOLE 500 MG PREMIX 100 ML IV SCH ×3 (01:49→17:53)
[2018-08-03] MEDS: IPRATROPIUM/ALBUTEROL 0.5-3(2.5)MG/3ML NEB HHN SCH ×4 (02:24→19:56)
[2018-08-03 05:55] LABS: BASOPHILS % 0.4 % (0.0-2.0); EOSINOPHILS % 1.5 % (0.0-5.0); HEMATOCRIT. 29.2 % (42.0-52.0); HEMOGLOBIN. 9.3 g/dL (14.0-18.0); LYMPHOCYTES % 14.4 % (20.0-50.0); MEAN CORPUSCULAR HEMOGLOBIN 28.2 pg (28.0-32.0); MEAN CORPUSCULAR VOLUME 88.8 fL (80.0-94.0); MEAN PLATELET VOLUME 9.3 fl (7.4-10.4); MONOCYTES % 9.8 % (2.0-8.0); NEUTROPHILS % 73.9 % (40.0-76.0); PLATELET 403 x1000/uL (130-400); RED BLOOD CELL COUNT 3.29 mill/uL (4.7-6.1); RED CELL DISTRIBUTION WIDTH 15.7 % (11.6-14.6)
[2018-08-03 05:59] LABS: CHLORIDE 98 mEq/L (98-107)
[2018-08-03 06:04] LABS: PHOSPHORUS 3.9 mg/dL (2.5-4.9)
[2018-08-03] MEDS: BLOOD SUGAR DIAGNOSTIC STRIP TEST SCH ×4 (06:39→21:02)
[2018-08-03] MEDS: INSULIN LISPRO 100 UNITS/ML SUBCUT SCH ×7 (06:44→21:00)
[2018-08-03] MEDS: METOCLOPRAMIDE HCL 10MG/2ML VIAL IV SCH (06:53)
[2018-08-03] MEDS ORDERED: POTASSIUM CHLORIDE 20MEQ/PACKET PO SCH (07:30)
[2018-08-03] MEDS: ZINC SULFATE 220 MG ( 50 ) CAPSULE PO SCH (08:35)
[2018-08-03] MEDS: PANTOPRAZOLE SODIUM 40 MG/VIAL IV SCH (08:35)
[2018-08-03] MEDS: METOPROLOL TARTRATE 100MG TABLET NG SCH ×2 (08:36→21:10)
[2018-08-03] MEDS: ASCORBIC ACID 500 MG TABLET PO SCH ×2 (08:36→21:10)
[2018-08-03] MEDS: VANCOMYCIN 1,750 MG in DEXT 5% WATER 500 ML IV SCH (08:37)
[2018-08-03] MEDS: CEFTRIAXONE 2 G in DEXTROSE 5% WATER 50 ML IV SCH ×2 (08:37→21:09)
[2018-08-03 09:39] LABS: BG BASE EXCESS 6.2 mmol/L (-2.0-2.0); BG CARBOXYHEMOGLOBIN 0.2 % (0.5-1.5); BG DEOXYHEMOGLOBIN 1.6 % (0.0-5.0); BG FRACTION INSPIRED OXYGEN 32; BG HCO3 ACT 30.1 mmol/L (22.0-26.0); BG METHEMOGLOBIN 0.4 % (0.0-1.5); BG OXYGEN SATURATION 98.4 % (92.0-98.5); BG OXYHEMOGLOBIN 97.8 % (94.0-97.0); BG PCO2 40.5 mmHg (35.0-45.0); BG PH 7.489 (7.350-7.450); BG PO2 118.9 mmHg (75.0-100.0); BG SAMPLE SITE RIGHT BRACHIAL; BG VENT MODE MASK - VENTI
[2018-08-03] MEDS: INSULIN GLARGINE UD 100 UNITS/ML SYR SUBCUT SCH ×2 (10:28→21:19)
[2018-08-03] MEDS ORDERED: HYDROCODONE/ACETAMINOPHEN 5/325MG TABLET NG PRN (10:30)
[2018-08-03] MEDS ORDERED: HYDROCODONE/ACETAMINOPHEN 10/325MG TABLET NG PRN (10:30)
[2018-08-03] MEDS: ACETYLCYSTEINE 100MG/ML 10% VIAL 4ML INH SCH ×2 (13:22→19:56)
[2018-08-03] MEDS ORDERED: LIDOCAINE HCL/PF 1% 2ML VIAL ONE (13:30)
[2018-08-03] MEDS: FLUCONAZOLE 400MG/200ML BAG 200 ML IV SCH (23:30)
[2018-08-04] VITALS (51 sets, daily range): BP systolic 84–172; BP diastolic 27–113
[2018-08-04] MEDS: IPRATROPIUM/ALBUTEROL 0.5-3(2.5)MG/3ML NEB HHN SCH ×4 (01:17→20:05)
[2018-08-04] MEDS: ACETYLCYSTEINE 100MG/ML 10% VIAL 4ML INH SCH ×3 (01:17→16:29)
[2018-08-04] MEDS: METRONIDAZOLE 500 MG PREMIX 100 ML IV SCH ×3 (03:40→17:34)
[2018-08-04] MEDS: BLOOD SUGAR DIAGNOSTIC STRIP TEST SCH ×4 (05:10→21:00)
[2018-08-04] MEDS: INSULIN LISPRO 100 UNITS/ML SUBCUT SCH ×5 (06:05→21:05)
[2018-08-04 06:47] LABS: CHLORIDE 101 mEq/L (98-107)
[2018-08-04 06:48] LABS: BASOPHILS % 0.4 % (0.0-2.0); EOSINOPHILS % 2.2 % (0.0-5.0); HEMATOCRIT. 28.6 % (42.0-52.0); HEMOGLOBIN. 9.2 g/dL (14.0-18.0); LYMPHOCYTES % 14.3 % (20.0-50.0); MEAN CORPUSCULAR HEMOGLOBIN 28.7 pg (28.0-32.0); MEAN CORPUSCULAR VOLUME 89.4 fL (80.0-94.0); MEAN PLATELET VOLUME 8.8 fl (7.4-10.4); MONOCYTES % 8.5 % (2.0-8.0); NEUTROPHILS % 74.6 % (40.0-76.0); PLATELET 507 x1000/uL (130-400); RED CELL DISTRIBUTION WIDTH 15.3 % (11.6-14.6)
[2018-08-04] MEDS: PANTOPRAZOLE SODIUM 40 MG/VIAL IV SCH (08:58)
[2018-08-04] MEDS: CEFTRIAXONE 2 G in DEXTROSE 5% WATER 50 ML IV SCH ×2 (08:58→21:02)
[2018-08-04] MEDS: ZINC SULFATE 220 MG ( 50 ) CAPSULE PO SCH (08:59)
[2018-08-04] MEDS: METOPROLOL TARTRATE 100MG TABLET NG SCH ×2 (08:59→21:03)
[2018-08-04] MEDS: ASCORBIC ACID 500 MG TABLET PO SCH ×2 (08:59→21:03)
[2018-08-04] MEDS: INSULIN GLARGINE UD 100 UNITS/ML SYR SUBCUT SCH ×2 (09:51→22:01)
[2018-08-04] MEDS ORDERED: IPRATROPIUM/ALBUTEROL 0.5-3(2.5)MG/3ML NEB HHN SCH (10:00)
[2018-08-04] MEDS: ENOXAPARIN 30MG/0.3ML SYR SUBCUT SCH ×2 (12:29→21:04)
[2018-08-04] MEDS: FLUCONAZOLE 400MG/200ML BAG 200 ML IV SCH (23:41)
[2018-08-05] VITALS (17 sets, daily range): BP systolic 111–180; BP diastolic 50–94
[2018-08-05] MEDS: IPRATROPIUM/ALBUTEROL 0.5-3(2.5)MG/3ML NEB HHN SCH ×6 (02:19→20:00)
[2018-08-05] MEDS: ACETYLCYSTEINE 100MG/ML 10% VIAL 4ML INH SCH ×3 (05:40→16:20)
[2018-08-05] MEDS: BLOOD SUGAR DIAGNOSTIC STRIP TEST SCH ×4 (06:04→21:00)
[2018-08-05 06:25] LABS: BASOPHILS % 0.4 % (0.0-2.0); EOSINOPHILS % 3.1 % (0.0-5.0); HEMATOCRIT. 29.2 % (42.0-52.0); HEMOGLOBIN. 9.4 g/dL (14.0-18.0); LYMPHOCYTES % 16.2 % (20.0-50.0); MEAN CORPUSCULAR HEMOGLOBIN 28.6 pg (28.0-32.0); MEAN CORPUSCULAR VOLUME 88.5 fL (80.0-94.0); MEAN PLATELET VOLUME 8.2 fl (7.4-10.4); MONOCYTES % 9.5 % (2.0-8.0); NEUTROPHILS % 70.8 % (40.0-76.0); PLATELET 642 x1000/uL (130-400); RED CELL DISTRIBUTION WIDTH 15.3 % (11.6-14.6)
[2018-08-05 06:34] LABS: CHLORIDE 100 mEq/L (98-107)
[2018-08-05] MEDS: ZINC SULFATE 220 MG ( 50 ) CAPSULE PO SCH (09:00)
[2018-08-05] MEDS: METOPROLOL TARTRATE 100MG TABLET NG SCH ×2 (09:00→20:06)
[2018-08-05] MEDS: ASCORBIC ACID 500 MG TABLET PO SCH ×2 (09:00→20:06)
[2018-08-05] MEDS: PANTOPRAZOLE SODIUM 40 MG/VIAL IV SCH (09:16)
[2018-08-05] MEDS: ENOXAPARIN 30MG/0.3ML SYR SUBCUT SCH ×2 (09:16→21:10)
[2018-08-05] MEDS: INSULIN LISPRO 100 UNITS/ML SUBCUT SCH ×4 (09:17→21:00)
[2018-08-05] MEDS: INSULIN GLARGINE UD 100 UNITS/ML SYR SUBCUT SCH ×2 (09:17→21:11)
[2018-08-05] MEDS: SODIUM CHLORIDE 0.9% 1,000 ML IV SCH ×3 (17:05→18:28)
[2018-08-05] MEDS: FLUCONAZOLE 400MG/200ML BAG 200 ML IV SCH (23:05)
[2018-08-06] VITALS (12 sets, daily range): BP systolic 122–150; BP diastolic 48–91
[2018-08-06] MEDS: ACETYLCYSTEINE 100MG/ML 10% VIAL 4ML INH SCH ×3 (00:08→15:39)
[2018-08-06] MEDS: IPRATROPIUM/ALBUTEROL 0.5-3(2.5)MG/3ML NEB HHN SCH ×6 (00:08→20:20)
[2018-08-06 06:01] LABS: CHLORIDE 103 mEq/L (98-107)
[2018-08-06 06:04] LABS: BASOPHILS % 0.1 % (0.0-2.0); EOSINOPHILS % 3.4 % (0.0-5.0); HEMATOCRIT. 30.2 % (42.0-52.0); HEMOGLOBIN. 9.5 g/dL (14.0-18.0); LYMPHOCYTES % 18.5 % (20.0-50.0); MEAN CORPUSCULAR VOLUME 89.5 fL (80.0-94.0); MEAN PLATELET VOLUME 8.2 fl (7.4-10.4); MONOCYTES % 8.9 % (2.0-8.0); NEUTROPHILS % 69.1 % (40.0-76.0); PLATELET 721 x1000/uL (130-400); RED BLOOD CELL COUNT 3.38 mill/uL (4.7-6.1); RED CELL DISTRIBUTION WIDTH 15.9 % (11.6-14.6)
[2018-08-06] MEDS: BLOOD SUGAR DIAGNOSTIC STRIP TEST SCH ×4 (06:50→20:56)
[2018-08-06] MEDS ORDERED: POTASSIUM CHLORIDE 20MEQ/PACKET PO NR (07:15)
[2018-08-06] MEDS: PANTOPRAZOLE SODIUM 40 MG/VIAL IV SCH (08:23)
[2018-08-06] MEDS: ENOXAPARIN 30MG/0.3ML SYR SUBCUT SCH ×2 (08:23→21:10)
[2018-08-06] MEDS: METOPROLOL TARTRATE 100MG TABLET NG SCH ×2 (08:24→21:10)
[2018-08-06] MEDS: ASCORBIC ACID 500 MG TABLET PO SCH ×2 (08:24→21:10)
[2018-08-06] MEDS: ZINC SULFATE 220 MG ( 50 ) CAPSULE PO SCH (08:24)
[2018-08-06] MEDS: INSULIN LISPRO 100 UNITS/ML SUBCUT SCH ×4 (08:27→20:57)
[2018-08-06] MEDS ORDERED: SODIUM CHLORIDE 0.9% 1,000 ML IV ONE (10:30)
[2018-08-06] MEDS: INSULIN GLARGINE UD 100 UNITS/ML SYR SUBCUT SCH ×2 (10:51→21:22)
[2018-08-06] MEDS: NEOMY SULF/BACITRAC ZN/POLY OINT 28GM TOP SCH ×2 (15:42→22:12)
[2018-08-06] MEDS: FLUCONAZOLE 400MG/200ML BAG 200 ML IV SCH (23:44)
[2018-08-07] VITALS (7 sets, daily range): BP systolic 115–143; BP diastolic 68–81
[2018-08-07] MEDS: IPRATROPIUM/ALBUTEROL 0.5-3(2.5)MG/3ML NEB HHN SCH ×6 (01:50→21:05)
[2018-08-07] MEDS: ACETYLCYSTEINE 100MG/ML 10% VIAL 4ML INH SCH ×3 (01:51→16:00)
[2018-08-07] MEDS: NEOMY SULF/BACITRAC ZN/POLY OINT 28GM TOP SCH ×3 (06:26→23:52)
[2018-08-07] MEDS: BLOOD SUGAR DIAGNOSTIC STRIP TEST SCH ×4 (06:26→21:39)
[2018-08-07] MEDS: INSULIN LISPRO 100 UNITS/ML SUBCUT SCH ×4 (07:50→21:00)
[2018-08-07] MEDS: ASCORBIC ACID 500 MG TABLET PO SCH ×2 (08:46→21:00)
[2018-08-07] MEDS: ZINC SULFATE 220 MG ( 50 ) CAPSULE PO SCH (08:46)
[2018-08-07] MEDS: ENOXAPARIN 30MG/0.3ML SYR SUBCUT SCH ×2 (08:47→22:15)
[2018-08-07] MEDS: METOPROLOL TARTRATE 100MG TABLET NG SCH ×2 (08:53→21:00)
[2018-08-07] MEDS: PANTOPRAZOLE SODIUM 40 MG/VIAL IV SCH (08:53)
[2018-08-07 09:32] LABS: CHLORIDE 103 mEq/L (98-107)
[2018-08-07 09:37] LABS: PHOSPHORUS 4.9 mg/dL (2.5-4.9)
[2018-08-07 09:38] LABS: BASOPHILS % 0.6 % (0.0-2.0); HEMATOCRIT. 32.4 % (42.0-52.0); HEMOGLOBIN. 10.3 g/dL (14.0-18.0); MEAN CORPUSCULAR HEMOGLOBIN 28.8 pg (28.0-32.0); MEAN CORPUSCULAR VOLUME 90.3 fL (80.0-94.0); MEAN PLATELET VOLUME 8.1 fl (7.4-10.4); NEUTROPHILS % 70.4 % (40.0-76.0); PLATELET 780 x1000/uL (130-400); RED BLOOD CELL COUNT 3.59 mill/uL (4.7-6.1); RED CELL DISTRIBUTION WIDTH 16.3 % (11.6-14.6)
[2018-08-07] MEDS: INSULIN GLARGINE UD 100 UNITS/ML SYR SUBCUT SCH ×2 (11:02→21:40)
[2018-08-07] MEDS ORDERED: MORPHINE SULFATE 4 MG/ML CPJ (NOT FOR IM USE) IV PRN (22:00)
[2018-08-08] VITALS (37 sets, daily range): BP systolic 82–123; BP diastolic 39–73
[2018-08-08] MEDS: IPRATROPIUM/ALBUTEROL 0.5-3(2.5)MG/3ML NEB HHN SCH ×6 (00:45→20:22)
[2018-08-08 01:11] LABS: BG BASE EXCESS -0.7 mmol/L (-2.0-2.0); BG CARBOXYHEMOGLOBIN 0.8 % (0.5-1.5); BG DEOXYHEMOGLOBIN 17.9 % (0.0-5.0); BG FRACTION INSPIRED OXYGEN 100; BG METHEMOGLOBIN 0.4 % (0.0-1.5); BG OXYGEN SATURATION 81.9 % (92.0-98.5); BG OXYHEMOGLOBIN 80.9 % (94.0-97.0); BG PCO2 45.3 mmHg (35.0-45.0); BG PO2 53.5 mmHg (75.0-100.0); BG SAMPLE SITE LEFT RADIAL; BG TOTAL HEMOGLOBIN 12.4 g/dL (12.0-18.0); BG VENT MODE MASK - NRB
[2018-08-08] MEDS: INSULIN GLARGINE UD 100 UNITS/ML SYR SUBCUT SCH ×3 (05:11→22:09)
[2018-08-08] MEDS: BLOOD SUGAR DIAGNOSTIC STRIP TEST SCH ×4 (06:42→21:18)
[2018-08-08] MEDS: NEOMY SULF/BACITRAC ZN/POLY OINT 28GM TOP SCH ×3 (06:43→22:09)
[2018-08-08] MEDS: ENOXAPARIN 30MG/0.3ML SYR SUBCUT SCH ×2 (08:28→21:21)
[2018-08-08] MEDS: INSULIN LISPRO 100 UNITS/ML SUBCUT SCH ×4 (08:29→21:20)
[2018-08-08] MEDS: PANTOPRAZOLE SODIUM 40 MG/VIAL IV SCH (08:29)
[2018-08-08] MEDS: ASCORBIC ACID 500 MG TABLET PO SCH ×2 (08:30→21:19)
[2018-08-08] MEDS: ZINC SULFATE 220 MG ( 50 ) CAPSULE PO SCH (08:30)
[2018-08-08] MEDS: METOPROLOL TARTRATE 100MG TABLET NG SCH ×2 (08:31→21:19)
[2018-08-08] MEDS: ACETYLCYSTEINE 100MG/ML 10% VIAL 4ML INH SCH ×2 (08:40→15:25)
[2018-08-08 08:55] LABS: BG BASE EXCESS 3.3 mmol/L (-2.0-2.0); BG CARBOXYHEMOGLOBIN 0.3 % (0.5-1.5); BG DEOXYHEMOGLOBIN 4.3 % (0.0-5.0); BG FRACTION INSPIRED OXYGEN 100; BG METHEMOGLOBIN 0.4 % (0.0-1.5); BG OXYGEN SATURATION 95.7 % (92.0-98.5); BG PCO2 42.9 mmHg (35.0-45.0); BG PH 7.432 (7.350-7.450); BG PO2 86.8 mmHg (75.0-100.0); BG SAMPLE SITE RIGHT RADIAL; BG TOTAL HEMOGLOBIN 11.8 g/dL (12.0-18.0); BG VENT MODE MASK - NRB
[2018-08-08 13:00] LABS: CHLORIDE 100 mEq/L (98-107)
[2018-08-08 14:03] LABS: HEMATOCRIT. 32.2 % (42.0-52.0); HEMOGLOBIN. 10.2 g/dL (14.0-18.0); MEAN CORPUSCULAR HEMOGLOBIN 28.5 pg (28.0-32.0); MEAN CORPUSCULAR VOLUME 89.5 fL (80.0-94.0); PLATELET 797 x1000/uL (130-400); RED BLOOD CELL COUNT 3.59 mill/uL (4.7-6.1); RED CELL DISTRIBUTION WIDTH 16.5 % (11.6-14.6)
[2018-08-08] MEDS: METOCLOPRAMIDE HCL 10MG/2ML VIAL IV SCH ×3 (14:07→23:13)
[2018-08-08] MEDS ORDERED: VECURONIUM BROMIDE 10 MG/VIAL IV ONE (14:40)
[2018-08-08] MEDS ORDERED: ETOMIDATE 2MG/ML 10ML VIAL IV ONE (14:40)
[2018-08-08] MEDS ORDERED: SODIUM CHLORIDE 0.9% 10ML VIAL ONE (14:40)
[2018-08-08] MEDS: ACETAMINOPHEN 650MG/20.3ML UDC NG PRN (15:07)
[2018-08-08] MEDS: SODIUM CHLORIDE 3% FOR INH 15ML VIAL NEB INH SCH ×3 (15:25→20:21)
[2018-08-08] MEDS ORDERED: PROPOFOL 10MG/ML 100ML 100 ML IV PRN ×2 (16:45)
[2018-08-08 17:28] LABS: BG BASE EXCESS 1.9 mmol/L (-2.0-2.0); BG CARBOXYHEMOGLOBIN 0.3 % (0.5-1.5); BG DEOXYHEMOGLOBIN 14.8 % (0.0-5.0); BG FRACTION INSPIRED OXYGEN 100; BG HCO3 ACT 27.9 mmol/L (22.0-26.0); BG METHEMOGLOBIN 0.6 % (0.0-1.5); BG OXYGEN SATURATION 85.1 % (92.0-98.5); BG OXYHEMOGLOBIN 84.3 % (94.0-97.0); BG PCO2 49.9 mmHg (35.0-45.0); BG PH 7.365 (7.350-7.450); BG PO2 57.7 mmHg (75.0-100.0); BG SAMPLE SITE RIGHT RADIAL; BG TIDAL VOLUME(mL) 550 mL; BG TOTAL HEMOGLOBIN 11.1 g/dL (12.0-18.0); BG VENT MODE VENT - A/C; BG VENT RATE 16 set
[2018-08-08] MEDS ORDERED: METHYLPREDNISOLONE SOD SUCC 40 MG/ML VIAL IV ONE (17:30)
[2018-08-08] MEDS ORDERED: SODIUM CHLORIDE 0.9% 1,000 ML IV SCH (17:30)
[2018-08-08] MEDS: DEXT 5%/0.45% NACL 1000ML 1,000 ML IV SCH (17:55)
[2018-08-08] MEDS ORDERED: CEFEPIME 1,000 MG in DEXTROSE 5% WATER 50 ML IV SCH (18:00)
[2018-08-08] MEDS: MIDAZOLAM HCL 100 MG in DEXT 5% WATER 80 ML IV PRN (18:02)
[2018-08-08] MEDS: FENTANYL CITRATE/PF 500 MCG in SODIUM CHLORIDE 0.9% 40 ML IV PRN ×2 (18:03→22:53)
[2018-08-08 18:19] LABS: BG BASE EXCESS -2.2 mmol/L (-2.0-2.0); BG CARBOXYHEMOGLOBIN 0.3 % (0.5-1.5); BG DEOXYHEMOGLOBIN 29.5 % (0.0-5.0); BG FRACTION INSPIRED OXYGEN 100; BG HCO3 ACT 28.3 mmol/L (22.0-26.0); BG METHEMOGLOBIN 0.7 % (0.0-1.5); BG OXYGEN SATURATION 70.2 % (92.0-98.5); BG OXYHEMOGLOBIN 69.5 % (94.0-97.0); BG PCO2 83.4 mmHg (35.0-45.0); BG PH 7.148 (7.350-7.450); BG PO2 53.1 mmHg (75.0-100.0); BG SAMPLE SITE RIGHT BRACHIAL; BG TOTAL HEMOGLOBIN 11.4 g/dL (12.0-18.0); BG VENT MODE VENT - PCV; BG VENT RATE 16 set
[2018-08-08] MEDS ORDERED: METHYLPREDNISOLONE IV SCH (18:30)
[2018-08-08] MEDS ORDERED: D5W IV SCH (18:30)
[2018-08-08] MEDS: PHENYLEPHRINE 40 MG in DEXT 5% WATER 246 ML IV PRN ×2 (18:42→23:14)
[2018-08-08] MEDS ORDERED: METRONIDAZOLE 500 MG PREMIX 100 ML IV SCH (19:00)
[2018-08-08] MEDS: MEROPENEM 1,000 MG in SODIUM CHLORIDE 0.9% 100 ML IV SCH (21:19)
[2018-08-09] VITALS (98 sets, daily range): BP systolic 62–187; BP diastolic 29–80
[2018-08-09] MEDS: SODIUM CHLORIDE 3% FOR INH 15ML VIAL NEB INH SCH ×6 (01:18→16:00)
[2018-08-09] MEDS: ACETYLCYSTEINE 100MG/ML 10% VIAL 4ML INH SCH ×3 (01:21→15:25)
[2018-08-09] MEDS: IPRATROPIUM/ALBUTEROL 0.5-3(2.5)MG/3ML NEB HHN SCH ×6 (01:21→19:46)
[2018-08-09] MEDS: DEXT 5%/0.45% NACL 1000ML 1,000 ML IV SCH (02:34)
[2018-08-09] MEDS: MIDAZOLAM HCL 100 MG in DEXT 5% WATER 80 ML IV PRN (02:53)
[2018-08-09] MEDS: MEROPENEM 1,000 MG in SODIUM CHLORIDE 0.9% 100 ML IV SCH ×3 (03:01→20:54)
[2018-08-09] MEDS: FENTANYL CITRATE/PF 500 MCG in SODIUM CHLORIDE 0.9% 40 ML IV PRN (05:17)
[2018-08-09] MEDS: PHENYLEPHRINE 40 MG in DEXT 5% WATER 246 ML IV PRN ×3 (05:18→18:33)
[2018-08-09] MEDS: BLOOD SUGAR DIAGNOSTIC STRIP TEST SCH ×9 (05:38→23:14)
[2018-08-09 05:44] LABS: HEMOGLOBIN. 9.6 g/dL (14.0-18.0); MEAN CORPUSCULAR HEMOGLOBIN 28.1 pg (28.0-32.0); MEAN CORPUSCULAR VOLUME 90.6 fL (80.0-94.0); MEAN PLATELET VOLUME 8.1 fl (7.4-10.4); PLATELET 818 x1000/uL (130-400); RED BLOOD CELL COUNT 3.42 mill/uL (4.7-6.1); RED CELL DISTRIBUTION WIDTH 15.9 % (11.6-14.6)
[2018-08-09] MEDS: METOCLOPRAMIDE HCL 10MG/2ML VIAL IV SCH ×4 (06:01→23:18)
[2018-08-09] MEDS: NEOMY SULF/BACITRAC ZN/POLY OINT 28GM TOP SCH ×3 (06:01→22:19)
[2018-08-09] MEDS: INSULIN LISPRO 100 UNITS/ML SUBCUT SCH ×2 (06:02→13:23)
[2018-08-09 06:30] LABS: CHLORIDE 101 mEq/L (98-107)
[2018-08-09 06:47] LABS: PHOSPHORUS 4.8 mg/dL (2.5-4.9)
[2018-08-09] MEDS ORDERED: INSULIN REGULAR (HUMULIN R) 300UNITS/3ML IV STA (07:03)
[2018-08-09] MEDS ORDERED: DEXTROSE 50% WATER 50ML SYRINGE IV STA (07:03)
[2018-08-09] MEDS ORDERED: SODIUM BICARBONATE 8.4% 1 MEQ/ML 50ML SYR IV STA (07:03)
[2018-08-09] MEDS ORDERED: SODIUM POLYSTYRENE SULFONATE 15 G/60 ML BOT PO ONE (07:15)
[2018-08-09] MEDS ORDERED: DEXT 5%/0.9% NACL 1,000 ML IV SCH (07:15)
[2018-08-09 08:34] LABS: BG BASE EXCESS 3.6 mmol/L (-2.0-2.0); BG CARBOXYHEMOGLOBIN 0.1 % (0.5-1.5); BG DEOXYHEMOGLOBIN 3.8 % (0.0-5.0); BG FRACTION INSPIRED OXYGEN 100; BG HCO3 ACT 33.3 mmol/L (22.0-26.0); BG METHEMOGLOBIN 0.4 % (0.0-1.5); BG OXYGEN SATURATION 96.2 % (92.0-98.5); BG OXYHEMOGLOBIN 95.7 % (94.0-97.0); BG PCO2 89.3 mmHg (35.0-45.0); BG PO2 98.9 mmHg (75.0-100.0); BG SAMPLE SITE RIGHT RADIAL; BG TOTAL HEMOGLOBIN 9.2 g/dL (12.0-18.0); BG VENT MODE VENT - PCV; BG VENT RATE 22 set
[2018-08-09] MEDS: PANTOPRAZOLE SODIUM 40 MG/VIAL IV SCH (08:41)
[2018-08-09] MEDS: ASCORBIC ACID 500 MG TABLET PO SCH ×2 (08:41→20:56)
[2018-08-09] MEDS: ZINC SULFATE 220 MG ( 50 ) CAPSULE PO SCH (08:41)
[2018-08-09] MEDS: ACETAMINOPHEN 650MG/20.3ML UDC NG PRN ×3 (08:41→23:18)
[2018-08-09] MEDS: METOPROLOL TARTRATE 100MG TABLET NG SCH (08:41)
[2018-08-09] MEDS: ENOXAPARIN 30MG/0.3ML SYR SUBCUT SCH ×2 (08:42→20:58)
[2018-08-09 09:24] LABS: NUCLEATED RED BLOOD CELLS 1 /100 WBC; PLATELET ESTIMATE INCREASED
[2018-08-09 09:29] LABS: PLATELET ESTIMATE MARKEDLY INCREASED
[2018-08-09] MEDS: INSULIN GLARGINE UD 100 UNITS/ML SYR SUBCUT SCH (11:08)
[2018-08-09 11:44] LABS: BG BASE EXCESS 3.8 mmol/L (-2.0-2.0); BG CARBOXYHEMOGLOBIN 0.3 % (0.5-1.5); BG DEOXYHEMOGLOBIN 4.2 % (0.0-5.0); BG FRACTION INSPIRED OXYGEN 100; BG HCO3 ACT 34.7 mmol/L (22.0-26.0); BG METHEMOGLOBIN 0.4 % (0.0-1.5); BG OXYGEN SATURATION 95.8 % (92.0-98.5); BG OXYHEMOGLOBIN 95.1 % (94.0-97.0); BG PCO2 102.5 mmHg (35.0-45.0); BG PH 7.147 (7.350-7.450); BG PO2 100.5 mmHg (75.0-100.0); BG SAMPLE SITE RIGHT RADIAL; BG TOTAL HEMOGLOBIN 9.6 g/dL (12.0-18.0); BG VENT MODE VENT - PCV; BG VENT RATE 28 set
[2018-08-09] MEDS ORDERED: INSULIN REGULAR (HUMULIN R) 300UNITS/3ML IV NR (12:45)
[2018-08-09] MEDS ORDERED: DEXTROSE 50% WATER 50ML SYRINGE IV ONE (12:45)
[2018-08-09] MEDS ORDERED: SODIUM BICARBONATE 8.4% 1 MEQ/ML 50ML SYR IV NR (12:45)
[2018-08-09] MEDS ORDERED: VECURONIUM BROMIDE 10 MG in DEXT 5% WATER 100 ML IV PRN (13:00)
[2018-08-09] MEDS ORDERED: VASOPRESSIN 10 UNIT in SODIUM CHLORIDE 0.9% 99.5 ML IV PRN (13:00)
[2018-08-09] MEDS ORDERED: SODIUM POLYSTYRENE SULFONATE 15 G/60 ML BOT PO NR (13:00)
[2018-08-09] MEDS: METRONIDAZOLE 500 MG PREMIX 100 ML IV SCH ×2 (13:16→21:41)
[2018-08-09] MEDS: FENTANYL CITRATE/PF 500 MCG in SODIUM CHLORIDE 0.9% 40 ML IV SCH ×2 (13:22→21:47)
[2018-08-09 13:29] LABS: CHLORIDE 103 mEq/L (98-107)
[2018-08-09] MEDS ORDERED: NOREPINEPHRINE 16 MG in DEXT 5% WATER 234 ML IV PRN (13:30)
[2018-08-09] MEDS ORDERED: FLUCONAZOLE 400MG/200ML BAG 200 ML IV SCH (14:30)
[2018-08-09] MEDS ORDERED: EPINEPHRINE 1 MG in SODIUM CHLORIDE 0.9% 249 ML IV PRN (14:30)
[2018-08-09] MEDS ORDERED: BLOOD SUGAR DIAGNOSTIC STRIP TEST SCH (14:45)
[2018-08-09] MEDS ORDERED: SODIUM BICARBONATE 8.4% 1 MEQ/ML 50ML SYR IV ONE (14:45)
[2018-08-09] MEDS: FLUCONAZOLE 400MG/200ML BAG 200 ML IV SCH (14:48)
[2018-08-09] MEDS ORDERED: ALBUMIN HUMAN 25GM/100ML (25%) IV NR (15:00)
[2018-08-09] MEDS ORDERED: VANCOMYCIN 2,000 MG in DEXT 5% WATER 500 ML IV NR (15:00)
[2018-08-09] MEDS: WATER IV PRN ×2 (15:23→21:39)
[2018-08-09] MEDS: VECURONIUM BROMIDE IV PRN ×2 (15:23→21:39)
[2018-08-09] MEDS: DEXT 5% IV PRN ×2 (15:23→21:39)
[2018-08-09] MEDS: MIDAZOLAM HCL 50 MG in DEXTROSE 5% WATER 40 ML IV SCH (15:23)
[2018-08-09] MEDS ORDERED: HYDROCORTISONE SOD SUCCINATE 100 MG/2 ML VIAL IV NR (15:27)
[2018-08-09] MEDS ORDERED: DEXTROSE 50% WATER 50ML SYRINGE IV PRN ×2 (15:32)
[2018-08-09] MEDS: INSULIN REGULAR (DRIP) 100 UNITS in SODIUM CHLORIDE 0.9% 100 ML IV SCH (16:09)
[2018-08-09 16:50] LABS: CHLORIDE 102 mEq/L (98-107)
[2018-08-09 16:54] LABS: BG BASE EXCESS 8.1 mmol/L (-2.0-2.0); BG CARBOXYHEMOGLOBIN 0.3 % (0.5-1.5); BG DEOXYHEMOGLOBIN 0.4 % (0.0-5.0); BG FRACTION INSPIRED OXYGEN 100; BG HCO3 ACT 32.9 mmol/L (22.0-26.0); BG METHEMOGLOBIN 0.6 % (0.0-1.5); BG OXYGEN SATURATION 99.6 % (92.0-98.5); BG OXYHEMOGLOBIN 98.7 % (94.0-97.0); BG PCO2 47.7 mmHg (35.0-45.0); BG PH 7.456 (7.350-7.450); BG PO2 339.4 mmHg (75.0-100.0); BG SAMPLE SITE A-LINE; BG TOTAL HEMOGLOBIN 8.2 g/dL (12.0-18.0); BG VENT MODE VENT - PCV; BG VENT RATE 30 set
[2018-08-09 17:09] LABS: CLARITY URINE CLEAR (CLEAR); COLOR URINE YELLOW (YELLOW); KETONES URINE NEGATIVE (NEGATIVE); LEUKOCYTE ESTERASE URINE NEGATIVE (NEGATIVE); NITRITE URINE NEGATIVE (NEGATIVE); OCCULT BLOOD URINE 1+ (NEGATIVE); PH URINE 5.5 (4.5-8.0); PROTEIN URINE 1+ (NEGATIVE); SPECIFIC GRAVITY URINE 1.021 (1.005-1.030); UROBILINOGEN URINE 0.2 E.U./dL (0.2-1.0)
[2018-08-09 20:44] LABS: BG BASE EXCESS 5.2 mmol/L (-2.0-2.0); BG CARBOXYHEMOGLOBIN 0.3 % (0.5-1.5); BG DEOXYHEMOGLOBIN 1.5 % (0.0-5.0); BG FRACTION INSPIRED OXYGEN 70; BG HCO3 ACT 26.8 mmol/L (22.0-26.0); BG METHEMOGLOBIN 0.3 % (0.0-1.5); BG OXYGEN SATURATION 98.5 % (92.0-98.5); BG OXYHEMOGLOBIN 97.9 % (94.0-97.0); BG PCO2 29.4 mmHg (35.0-45.0); BG PH 7.578 (7.350-7.450); BG PO2 106.8 mmHg (75.0-100.0); BG SAMPLE SITE A-LINE; BG TOTAL HEMOGLOBIN 10.9 g/dL (12.0-18.0); BG VENT MODE VENT - PCV; BG VENT RATE 30 set
[2018-08-09 20:56] LABS: CHLORIDE 101 mEq/L (98-107)
[2018-08-09 21:04] LABS: CREATINE KINASE 411 IU/L (39-308)
[2018-08-09 21:06] LABS: CREATINE KINASE MB FRACTION 1.2 ng/mL (0.5-3.6)
[2018-08-09 21:10] LABS: D-DIMER 14.38 mg/L FEU (<0.50); INR 1.7; PROTHROMBIN TIME 16.7 sec (9.1-11.1)
[2018-08-09] MEDS: HYDROCORTISONE SOD SUCCINATE 100 MG/2 ML VIAL IV SCH (21:45)
[2018-08-09] MEDS: VANCOMYCIN 1500MG in DEXTROSE 5% WATER 250ML IV SCH (22:52)
[2018-08-10] VITALS (84 sets, daily range): BP systolic 105–163; BP diastolic 43–94
[2018-08-10] MEDS: ACETYLCYSTEINE 100MG/ML 10% VIAL 4ML INH SCH ×4 (00:10→23:50)
[2018-08-10] MEDS: IPRATROPIUM/ALBUTEROL 0.5-3(2.5)MG/3ML NEB HHN SCH ×6 (00:11→20:03)
[2018-08-10] MEDS: BLOOD SUGAR DIAGNOSTIC STRIP TEST SCH ×21 (00:14→23:09)
[2018-08-10 00:37] LABS: BG CARBOXYHEMOGLOBIN 0.4 % (0.5-1.5); BG DEOXYHEMOGLOBIN 1.8 % (0.0-5.0); BG FRACTION INSPIRED OXYGEN 70; BG HCO3 ACT 26.5 mmol/L (22.0-26.0); BG METHEMOGLOBIN 0.1 % (0.0-1.5); BG OXYGEN SATURATION 98.2 % (92.0-98.5); BG OXYHEMOGLOBIN 97.7 % (94.0-97.0); BG PCO2 27.1 mmHg (35.0-45.0); BG PH 7.608 (7.350-7.450); BG PO2 91.6 mmHg (75.0-100.0); BG SAMPLE SITE PA LINE; BG TOTAL HEMOGLOBIN 7.9 g/dL (12.0-18.0); BG VENT MODE VENT - PCV; BG VENT RATE 26 set
[2018-08-10] MEDS: WATER IV PRN ×2 (02:18→09:19)
[2018-08-10] MEDS: VECURONIUM BROMIDE IV PRN ×2 (02:18→09:19)
[2018-08-10] MEDS: DEXT 5% IV PRN ×2 (02:18→09:19)
[2018-08-10] MEDS: MIDAZOLAM HCL 50 MG in DEXTROSE 5% WATER 40 ML IV SCH (03:08)
[2018-08-10] MEDS: MEROPENEM 1,000 MG in SODIUM CHLORIDE 0.9% 100 ML IV SCH ×3 (04:05→20:59)
[2018-08-10 04:10] LABS: BG BASE EXCESS 4.1 mmol/L (-2.0-2.0); BG CARBOXYHEMOGLOBIN 0.3 % (0.5-1.5); BG DEOXYHEMOGLOBIN 0.9 % (0.0-5.0); BG FRACTION INSPIRED OXYGEN 70; BG HCO3 ACT 26.6 mmol/L (22.0-26.0); BG METHEMOGLOBIN 0.4 % (0.0-1.5); BG OXYGEN SATURATION 99.1 % (92.0-98.5); BG OXYHEMOGLOBIN 98.4 % (94.0-97.0); BG PCO2 30.9 mmHg (35.0-45.0); BG PH 7.552 (7.350-7.450); BG PO2 145.1 mmHg (75.0-100.0); BG SAMPLE SITE A-LINE; BG TOTAL HEMOGLOBIN 7.8 g/dL (12.0-18.0); BG VENT MODE VENT - PCV; BG VENT RATE 20 set
[2018-08-10] MEDS: SODIUM CHLORIDE 3% FOR INH 15ML VIAL NEB INH SCH ×6 (04:15→23:50)
[2018-08-10] MEDS: NEOMY SULF/BACITRAC ZN/POLY OINT 28GM TOP SCH ×3 (06:00→21:20)
[2018-08-10] MEDS: METOCLOPRAMIDE HCL 10MG/2ML VIAL IV SCH ×3 (06:01→18:38)
[2018-08-10] MEDS: METRONIDAZOLE 500 MG PREMIX 100 ML IV SCH ×3 (06:01→22:14)
[2018-08-10] MEDS: HYDROCORTISONE SOD SUCCINATE 100 MG/2 ML VIAL IV SCH ×3 (06:01→21:19)
[2018-08-10] MEDS: FENTANYL CITRATE/PF 500 MCG in SODIUM CHLORIDE 0.9% 40 ML IV SCH (06:04)
[2018-08-10 06:12] LABS: BASOPHILS % 0.5 % (0.0-2.0); EOSINOPHILS % 0.1 % (0.0-5.0); HEMATOCRIT. 28.3 % (42.0-52.0); HEMOGLOBIN. 8.7 g/dL (14.0-18.0); MEAN CORPUSCULAR HEMOGLOBIN 27.9 pg (28.0-32.0); MEAN CORPUSCULAR VOLUME 90.9 fL (80.0-94.0); MEAN PLATELET VOLUME 7.7 fl (7.4-10.4); MONOCYTES % 6.6 % (2.0-8.0); NEUTROPHILS % 82.8 % (40.0-76.0); PLATELET 525 x1000/uL (130-400); RED BLOOD CELL COUNT 3.11 mill/uL (4.7-6.1); RED CELL DISTRIBUTION WIDTH 15.6 % (11.6-14.6)
[2018-08-10] MEDS: VANCOMYCIN 1500MG in DEXTROSE 5% WATER 250ML IV SCH ×2 (07:13→14:30)
[2018-08-10 07:29] LABS: CHLORIDE 101 mEq/L (98-107)
[2018-08-10 08:18] LABS: BG BASE EXCESS 5.4 mmol/L (-2.0-2.0); BG DEOXYHEMOGLOBIN 1.3 % (0.0-5.0); BG HCO3 ACT 27.6 mmol/L (22.0-26.0); BG METHEMOGLOBIN 0.3 % (0.0-1.5); BG OXYGEN SATURATION 98.7 % (92.0-98.5); BG OXYHEMOGLOBIN 98.4 % (94.0-97.0); BG PCO2 30.9 mmHg (35.0-45.0); BG PH 7.569 (7.350-7.450); BG PIP 34 cmH2O; BG PO2 108.4 mmHg (75.0-100.0); BG SAMPLE SITE A-LINE; BG TIDAL VOLUME(mL) 770 mL; BG VENT MODE VENT - PCV; BG VENT RATE 20 set
[2018-08-10] MEDS: INSULIN REGULAR (DRIP) 100 UNITS in SODIUM CHLORIDE 0.9% 100 ML IV SCH (08:49)
[2018-08-10] MEDS: ASCORBIC ACID 500 MG TABLET PO SCH ×2 (09:58→21:11)
[2018-08-10] MEDS: ZINC SULFATE 220 MG ( 50 ) CAPSULE PO SCH (09:58)
[2018-08-10] MEDS: PANTOPRAZOLE SODIUM 40 MG/VIAL IV SCH (09:58)
[2018-08-10] MEDS: ENOXAPARIN 30MG/0.3ML SYR SUBCUT SCH ×2 (09:59→21:11)
[2018-08-10 12:30] LABS: BG BASE EXCESS 4.4 mmol/L (-2.0-2.0); BG CARBOXYHEMOGLOBIN 0.2 % (0.5-1.5); BG DEOXYHEMOGLOBIN 0.9 % (0.0-5.0); BG METHEMOGLOBIN 0.8 % (0.0-1.5); BG OXYGEN SATURATION 99.1 % (92.0-98.5); BG OXYHEMOGLOBIN 98.1 % (94.0-97.0); BG PCO2 32.2 mmHg (35.0-45.0); BG PH 7.542 (7.350-7.450); BG PIP 34 cmH2O; BG PO2 155.3 mmHg (75.0-100.0); BG SAMPLE SITE A-LINE; BG TIDAL VOLUME(mL) 750 mL; BG TOTAL HEMOGLOBIN 8.1 g/dL (12.0-18.0); BG VENT MODE VENT - PCV; BG VENT RATE 14 set
[2018-08-10] MEDS: FLUCONAZOLE 400MG/200ML BAG 200 ML IV SCH (12:39)
[2018-08-10] MEDS: FENTANYL CITRATE/PF 500 MCG in SODIUM CHLORIDE 0.9% 40 ML IV PRN (12:40)
[2018-08-10] MEDS: MIDAZOLAM HCL 100 MG in DEXT 5% WATER 80 ML IV PRN (14:32)
[2018-08-10 15:34] LABS: BG BASE EXCESS 6.4 mmol/L (-2.0-2.0); BG DEOXYHEMOGLOBIN 0.9 % (0.0-5.0); BG FRACTION INSPIRED OXYGEN 65; BG HCO3 ACT 29.3 mmol/L (22.0-26.0); BG METHEMOGLOBIN 0.6 % (0.0-1.5); BG OXYGEN SATURATION 99.1 % (92.0-98.5); BG OXYHEMOGLOBIN 98.5 % (94.0-97.0); BG PCO2 34.8 mmHg (35.0-45.0); BG PH 7.543 (7.350-7.450); BG PO2 153.2 mmHg (75.0-100.0); BG SAMPLE SITE A-LINE; BG TOTAL HEMOGLOBIN 7.7 g/dL (12.0-18.0); BG VENT MODE VENT - PCV; BG VENT RATE 14 set
[2018-08-10 17:08] LABS: BG BASE EXCESS 4.3 mmol/L (-2.0-2.0); BG CARBOXYHEMOGLOBIN 0.3 % (0.5-1.5); BG DEOXYHEMOGLOBIN 3.1 % (0.0-5.0); BG HCO3 ACT 28.7 mmol/L (22.0-26.0); BG METHEMOGLOBIN 0.6 % (0.0-1.5); BG OXYGEN SATURATION 96.9 % (92.0-98.5); BG PCO2 42.6 mmHg (35.0-45.0); BG PH 7.447 (7.350-7.450); BG PO2 91.3 mmHg (75.0-100.0); BG SAMPLE SITE A-LINE; BG TIDAL VOLUME(mL) 500 mL; BG TOTAL HEMOGLOBIN 7.6 g/dL (12.0-18.0); BG VENT MODE VENT - A/C; BG VENT RATE 12 set
[2018-08-10] MEDS: ACETAMINOPHEN 650MG/20.3ML UDC NG PRN (18:38)
[2018-08-11] VITALS (98 sets, daily range): BP systolic 60–228; BP diastolic 51–206
[2018-08-11] MEDS: BLOOD SUGAR DIAGNOSTIC STRIP TEST SCH ×24 (00:03→23:00)
[2018-08-11] MEDS: INSULIN REGULAR (DRIP) 100 UNITS in SODIUM CHLORIDE 0.9% 100 ML IV SCH (00:10)
[2018-08-11] MEDS: ACETAMINOPHEN 650MG/20.3ML UDC NG PRN ×4 (00:32→18:18)
[2018-08-11] MEDS: MEROPENEM 1,000 MG in SODIUM CHLORIDE 0.9% 100 ML IV SCH ×3 (03:11→20:01)
[2018-08-11] MEDS: FENTANYL CITRATE/PF 500 MCG in SODIUM CHLORIDE 0.9% 40 ML IV PRN ×3 (03:12→21:53)
[2018-08-11] MEDS: IPRATROPIUM/ALBUTEROL 0.5-3(2.5)MG/3ML NEB HHN SCH ×5 (03:39→20:25)
[2018-08-11] MEDS: CLONIDINE 0.1MG TABLET PO PRN ×3 (04:36→18:19)
[2018-08-11] MEDS: NEOMY SULF/BACITRAC ZN/POLY OINT 28GM TOP SCH ×3 (05:06→21:54)
[2018-08-11] MEDS: METOCLOPRAMIDE HCL 10MG/2ML VIAL IV SCH ×4 (05:06→18:18)
[2018-08-11] MEDS: HYDROCORTISONE SOD SUCCINATE 100 MG/2 ML VIAL IV SCH ×2 (05:06→18:18)
[2018-08-11] MEDS: METRONIDAZOLE 500 MG PREMIX 100 ML IV SCH ×2 (05:07→14:21)
[2018-08-11 06:07] LABS: CHLORIDE 102 mEq/L (98-107)
[2018-08-11 06:09] LABS: HEMATOCRIT. 24.3 % (42.0-52.0); HEMOGLOBIN. 7.7 g/dL (14.0-18.0); MEAN CORPUSCULAR VOLUME 88.3 fL (80.0-94.0); MEAN PLATELET VOLUME 8.3 fl (7.4-10.4); PLATELET 508 x1000/uL (130-400); RED BLOOD CELL COUNT 2.75 mill/uL (4.7-6.1); RED CELL DISTRIBUTION WIDTH 15.9 % (11.6-14.6)
[2018-08-11] MEDS: SODIUM CHLORIDE 3% FOR INH 15ML VIAL NEB INH SCH (08:00)
[2018-08-11] MEDS: ACETYLCYSTEINE 100MG/ML 10% VIAL 4ML INH SCH ×3 (08:03→15:59)
[2018-08-11 08:22] LABS: BG BASE EXCESS 6.2 mmol/L (-2.0-2.0); BG DEOXYHEMOGLOBIN 0.9 % (0.0-5.0); BG FRACTION INSPIRED OXYGEN 60; BG HCO3 ACT 29.4 mmol/L (22.0-26.0); BG METHEMOGLOBIN 0.1 % (0.0-1.5); BG OXYGEN SATURATION 99.1 % (92.0-98.5); BG PCO2 36.1 mmHg (35.0-45.0); BG PH 7.529 (7.350-7.450); BG PO2 138.3 mmHg (75.0-100.0); BG SAMPLE SITE A-LINE; BG TOTAL HEMOGLOBIN 7.2 g/dL (12.0-18.0); BG VENT MODE VENT - PCV; BG VENT RATE 14 set
[2018-08-11] MEDS: VANCOMYCIN 1500MG in DEXTROSE 5% WATER 250ML IV SCH ×2 (08:41→20:37)
[2018-08-11] MEDS: ASCORBIC ACID 500 MG TABLET PO SCH ×2 (08:42→20:52)
[2018-08-11] MEDS: ENOXAPARIN 30MG/0.3ML SYR SUBCUT SCH ×2 (08:42→20:53)
[2018-08-11] MEDS: ZINC SULFATE 220 MG ( 50 ) CAPSULE PO SCH (08:42)
[2018-08-11] MEDS: PANTOPRAZOLE SODIUM 40 MG/VIAL IV SCH (08:42)
[2018-08-11] MEDS: SODIUM CHLORIDE 3% FOR INH 4ML UD NEB INH SCH (08:43)
[2018-08-11 10:24] LABS: NUCLEATED RED BLOOD CELLS 1 /100 WBC; PLATELET ESTIMATE INCREASED
[2018-08-11] MEDS: FLUCONAZOLE 400MG/200ML BAG 200 ML IV SCH (12:24)
[2018-08-11 12:32] LABS: BG BASE EXCESS 5.2 mmol/L (-2.0-2.0); BG CARBOXYHEMOGLOBIN 0.3 % (0.5-1.5); BG DEOXYHEMOGLOBIN 5.6 % (0.0-5.0); BG FRACTION INSPIRED OXYGEN 50; BG HCO3 ACT 31.9 mmol/L (22.0-26.0); BG METHEMOGLOBIN 0.4 % (0.0-1.5); BG OXYGEN SATURATION 94.4 % (92.0-98.5); BG OXYHEMOGLOBIN 93.7 % (94.0-97.0); BG PCO2 60.7 mmHg (35.0-45.0); BG PH 7.338 (7.350-7.450); BG SAMPLE SITE A-LINE; BG TIDAL VOLUME(mL) 550 mL; BG TOTAL HEMOGLOBIN 8.2 g/dL (12.0-18.0); BG VENT MODE VENT - A/C; BG VENT RATE 12 set
[2018-08-11] MEDS: MIDAZOLAM HCL 100 MG in DEXT 5% WATER 80 ML IV PRN (16:09)
[2018-08-11 18:50] LABS: BG BASE EXCESS 1.5 mmol/L (-2.0-2.0); BG CARBOXYHEMOGLOBIN 0.1 % (0.5-1.5); BG DEOXYHEMOGLOBIN 3.7 % (0.0-5.0); BG FRACTION INSPIRED OXYGEN 50; BG HCO3 ACT 26.8 mmol/L (22.0-26.0); BG METHEMOGLOBIN 0.4 % (0.0-1.5); BG OXYGEN SATURATION 96.3 % (92.0-98.5); BG OXYHEMOGLOBIN 95.8 % (94.0-97.0); BG PCO2 45.6 mmHg (35.0-45.0); BG PH 7.387 (7.350-7.450); BG PO2 95.6 mmHg (75.0-100.0); BG SAMPLE SITE A-LINE; BG TIDAL VOLUME(mL) 550 mL; BG TOTAL HEMOGLOBIN 8.5 g/dL (12.0-18.0); BG VENT MODE VENT - A/C; BG VENT RATE 16 set
[2018-08-12] VITALS (96 sets, daily range): BP systolic 63–158; BP diastolic 44–97
[2018-08-12] MEDS: METOCLOPRAMIDE HCL 10MG/2ML VIAL IV SCH ×4 (00:06→17:09)
[2018-08-12] MEDS: IPRATROPIUM/ALBUTEROL 0.5-3(2.5)MG/3ML NEB HHN SCH ×7 (00:25→23:56)
[2018-08-12] MEDS: INSULIN REGULAR (DRIP) 100 UNITS in SODIUM CHLORIDE 0.9% 100 ML IV SCH (00:38)
[2018-08-12] MEDS: BLOOD SUGAR DIAGNOSTIC STRIP TEST SCH ×21 (01:00→20:00)
[2018-08-12] MEDS: MEROPENEM 1,000 MG in SODIUM CHLORIDE 0.9% 100 ML IV SCH ×3 (03:50→19:37)
[2018-08-12] MEDS: FENTANYL CITRATE/PF 500 MCG in SODIUM CHLORIDE 0.9% 40 ML IV PRN ×3 (04:18→19:13)
[2018-08-12] MEDS: NEOMY SULF/BACITRAC ZN/POLY OINT 28GM TOP SCH ×3 (05:26→22:27)
[2018-08-12 06:04] LABS: BASOPHILS % 0.6 % (0.0-2.0); EOSINOPHILS % 0.1 % (0.0-5.0); HEMATOCRIT. 25.2 % (42.0-52.0); HEMOGLOBIN. 7.8 g/dL (14.0-18.0); MEAN CORPUSCULAR HEMOGLOBIN 27.5 pg (28.0-32.0); MEAN CORPUSCULAR VOLUME 88.6 fL (80.0-94.0); MEAN PLATELET VOLUME 8.6 fl (7.4-10.4); MONOCYTES % 10.2 % (2.0-8.0); NEUTROPHILS % 80.1 % (40.0-76.0); PLATELET 497 x1000/uL (130-400); RED BLOOD CELL COUNT 2.84 mill/uL (4.7-6.1); RED CELL DISTRIBUTION WIDTH 16.2 % (11.6-14.6)
[2018-08-12 06:13] LABS: CHLORIDE 104 mEq/L (98-107)
[2018-08-12 06:36] LABS: PHOSPHORUS 2.4 mg/dL (2.5-4.9)
[2018-08-12 07:59] LABS: BG BASE EXCESS 9.1 mmol/L (-2.0-2.0); BG CARBOXYHEMOGLOBIN 0.4 % (0.5-1.5); BG HCO3 ACT 33.8 mmol/L (22.0-26.0); BG METHEMOGLOBIN 0.3 % (0.0-1.5); BG OXYHEMOGLOBIN 97.3 % (94.0-97.0); BG PCO2 47.8 mmHg (35.0-45.0); BG PH 7.467 (7.350-7.450); BG PO2 102.5 mmHg (75.0-100.0); BG SAMPLE SITE RIGHT RADIAL; BG TIDAL VOLUME(mL) 550 mL; BG TOTAL HEMOGLOBIN 7.4 g/dL (12.0-18.0); BG VENT MODE VENT - A/C; BG VENT RATE 16 set
[2018-08-12] MEDS: ACETYLCYSTEINE 100MG/ML 10% VIAL 4ML INH SCH ×2 (08:13→16:27)
[2018-08-12] MEDS: ENOXAPARIN 30MG/0.3ML SYR SUBCUT SCH ×2 (08:23→22:27)
[2018-08-12] MEDS: PANTOPRAZOLE SODIUM 40 MG/VIAL IV SCH (08:23)
[2018-08-12] MEDS: VANCOMYCIN 1500MG in DEXTROSE 5% WATER 250ML IV SCH ×2 (08:23→20:15)
[2018-08-12] MEDS: ZINC SULFATE 220 MG ( 50 ) CAPSULE PO SCH (08:24)
[2018-08-12] MEDS: ASCORBIC ACID 500 MG TABLET PO SCH ×2 (08:24→22:27)
[2018-08-12] MEDS: HYDROCORTISONE SOD SUCCINATE 100 MG/2 ML VIAL IV SCH ×2 (08:27→17:09)
[2018-08-12] MEDS ORDERED: POTASSIUM PHOS,M-BASIC-D-BASIC 10 MMOL in DEXT 5% WATER 246.6667 ML IV SCH (09:00)
[2018-08-12 09:06] LABS: ANTI-CENTROMERE B ANTIBODIES < 0.2 AI (0.0-0.9); ANTI-DNA DOUBLE STRANDED QUANT 1 IU/mL (0-9); ANTI-JO 1 ABS <0.2 AI (0.0-0.9); ANTI-NUCLEAR ANTIBODIES DIRECT Negative (Negative); RNP ANTIBODY < 0.2 AI (0.0-0.9); SMITH ANTIBODY < 0.2 AI (0.0-0.9)
[2018-08-12] MEDS: MIDAZOLAM HCL 100 MG in DEXT 5% WATER 80 ML IV PRN ×2 (09:25→19:13)
[2018-08-12 16:15] LABS: BG BASE EXCESS 7.8 mmol/L (-2.0-2.0); BG CARBOXYHEMOGLOBIN 0.3 % (0.5-1.5); BG DEOXYHEMOGLOBIN 0.6 % (0.0-5.0); BG FRACTION INSPIRED OXYGEN 100; BG HCO3 ACT 34.1 mmol/L (22.0-26.0); BG METHEMOGLOBIN 0.4 % (0.0-1.5); BG OXYGEN SATURATION 99.4 % (92.0-98.5); BG OXYHEMOGLOBIN 98.7 % (94.0-97.0); BG PCO2 58.5 mmHg (35.0-45.0); BG PH 7.383 (7.350-7.450); BG PO2 267.1 mmHg (75.0-100.0); BG SAMPLE SITE RIGHT BRACHIAL; BG TIDAL VOLUME(mL) 550 mL; BG TOTAL HEMOGLOBIN 8.6 g/dL (12.0-18.0); BG VENT MODE VENT - A/C; BG VENT RATE 14 set
[2018-08-12] MEDS ORDERED: FAT EMULSIONS 500 ML IV SCH (21:00)
[2018-08-12] MEDS ORDERED: TOTAL PARENTERAL NUTRITION 1,600 ML IV SCH (21:00)
[2018-08-13] VITALS (87 sets, daily range): BP systolic 96–167; BP diastolic 41–88
[2018-08-13] MEDS: METOCLOPRAMIDE HCL 10MG/2ML VIAL IV SCH ×5 (00:37→23:59)
[2018-08-13] MEDS: INSULIN REGULAR (DRIP) 100 UNITS in SODIUM CHLORIDE 0.9% 100 ML IV SCH ×3 (00:53→23:06)
[2018-08-13] MEDS: FENTANYL CITRATE/PF 500 MCG in SODIUM CHLORIDE 0.9% 40 ML IV PRN ×3 (00:55→23:07)
[2018-08-13] MEDS: HYDROCORTISONE SOD SUCCINATE 100 MG/2 ML VIAL IV SCH ×3 (01:00→18:22)
[2018-08-13] MEDS: BLOOD SUGAR DIAGNOSTIC STRIP TEST SCH ×11 (02:00→23:58)
[2018-08-13] MEDS: MEROPENEM 1,000 MG in SODIUM CHLORIDE 0.9% 100 ML IV SCH ×3 (03:06→20:36)
[2018-08-13] MEDS: IPRATROPIUM/ALBUTEROL 0.5-3(2.5)MG/3ML NEB HHN SCH ×3 (04:35→11:53)
[2018-08-13] MEDS: NEOMY SULF/BACITRAC ZN/POLY OINT 28GM TOP SCH ×3 (05:00→22:00)
[2018-08-13 05:40] LABS: HEMATOCRIT. 30.8 % (42.0-52.0); HEMOGLOBIN. 10.1 g/dL (14.0-18.0); MEAN CORPUSCULAR HEMOGLOBIN 29.1 pg (28.0-32.0); MEAN CORPUSCULAR VOLUME 88.9 fL (80.0-94.0); MEAN PLATELET VOLUME 8.7 fl (7.4-10.4); PLATELET 467 x1000/uL (130-400); RED BLOOD CELL COUNT 3.46 mill/uL (4.7-6.1); RED CELL DISTRIBUTION WIDTH 16.3 % (11.6-14.6)
[2018-08-13 06:18] LABS: CHLORIDE 103 mEq/L (98-107)
[2018-08-13 06:28] LABS: PHOSPHORUS 3.4 mg/dL (2.5-4.9)
[2018-08-13 06:31] LABS: T4 FREE 1.27 ng/dL (0.76-1.46)
[2018-08-13] MEDS ORDERED: TOTAL PARENTERAL NUTRITION 1,600 ML IV SCH ×2 (07:30→21:00)
[2018-08-13 07:56] LABS: NUCLEATED RED BLOOD CELLS 4 /100 WBC; PLATELET ESTIMATE SLIGHTLY INCREASED
[2018-08-13] MEDS: ACETYLCYSTEINE 100MG/ML 10% VIAL 4ML INH SCH (08:40)
[2018-08-13] MEDS: PANTOPRAZOLE SODIUM 40 MG/VIAL IV SCH (08:45)
[2018-08-13] MEDS: VANCOMYCIN 1500MG in DEXTROSE 5% WATER 250ML IV SCH ×2 (08:45→20:59)
[2018-08-13] MEDS: MIDAZOLAM HCL 100 MG in DEXT 5% WATER 80 ML IV PRN ×2 (08:49→16:41)
[2018-08-13 09:03] LABS: BG BASE EXCESS 7.3 mmol/L (-2.0-2.0); BG CARBOXYHEMOGLOBIN 0.7 % (0.5-1.5); BG FRACTION INSPIRED OXYGEN 60; BG HCO3 ACT 36.7 mmol/L (22.0-26.0); BG METHEMOGLOBIN 0.4 % (0.0-1.5); BG OXYGEN SATURATION 94.9 % (92.0-98.5); BG OXYHEMOGLOBIN 93.9 % (94.0-97.0); BG PCO2 79.5 mmHg (35.0-45.0); BG PH 7.282 (7.350-7.450); BG PO2 87.3 mmHg (75.0-100.0); BG SAMPLE SITE RIGHT BRACHIAL; BG TIDAL VOLUME(mL) 550 mL; BG TOTAL HEMOGLOBIN 12.7 g/dL (12.0-18.0); BG VENT MODE VENT - A/C; BG VENT RATE 14 set
[2018-08-13 09:06] LABS: ANGIOTENSION CONVERTING ENZYME 44 U/L (14-82); ANTI-CARDIOLIPIN AB IGA < 9 APL U/mL (0-11); ANTI-CARDIOLIPIN AB IGG < 9 GPL U/mL (0-14); ANTI-HU ANTIBODIES <1:10 titer (.); GLOMERULAR BASEMENT MEMB AB 7 units (0-20)
[2018-08-13] MEDS: ASCORBIC ACID 500 MG TABLET PO SCH ×2 (09:44→21:00)
[2018-08-13] MEDS: ENOXAPARIN 30MG/0.3ML SYR SUBCUT SCH ×2 (09:44→21:22)
[2018-08-13] MEDS: ZINC SULFATE 220 MG ( 50 ) CAPSULE PO SCH (09:44)
[2018-08-13] MEDS: SODIUM CHLORIDE 3% FOR INH 4ML UD NEB INH SCH ×2 (11:53→17:02)
[2018-08-13 13:11] LABS: ACTIN (SMOOTH MUSCLE) ANTIBODY 9 Units (0-19); ANTI-MYELOPEROXIDASE AB < 9.0 U/mL (0.0-9.0); ANTI-PROTEINASE 3 ABS < 3.5 U/mL (0.0-3.5)
[2018-08-13 14:17] LABS: ATYPICAL P-ANCA <1:20 titer (Neg:<1:20); CYTOPLASMIC C-ANCA <1:20 titer (Neg:<1:20); PERINUCLEAR P-ANCA <1:20 titer (Neg:<1:20)
[2018-08-13] MEDS ORDERED: SODIUM CHLORIDE 0.9% 500 ML IV ONE (14:30)
[2018-08-13 14:52] LABS: BG BASE EXCESS 12.1 mmol/L (-2.0-2.0); BG CARBOXYHEMOGLOBIN 0.1 % (0.5-1.5); BG DEOXYHEMOGLOBIN 6.8 % (0.0-5.0); BG FRACTION INSPIRED OXYGEN 100; BG HCO3 ACT 39.6 mmol/L (22.0-26.0); BG METHEMOGLOBIN 0.1 % (0.0-1.5); BG OXYGEN SATURATION 93.2 % (92.0-98.5); BG PCO2 74.4 mmHg (35.0-45.0); BG PH 7.344 (7.350-7.450); BG PO2 74.9 mmHg (75.0-100.0); BG SAMPLE SITE RIGHT RADIAL; BG TIDAL VOLUME(mL) 550 mL; BG TOTAL HEMOGLOBIN 8.5 g/dL (12.0-18.0); BG VENT MODE VENT - A/C; BG VENT RATE 18 set
[2018-08-13] MEDS: IPRATROPIUM BROMIDE (0.02%) 0.5MG/2.5ML NEB HHN SCH ×2 (17:02→20:29)
[2018-08-13] MEDS ORDERED: LEVOFLOXACIN 750MG PREMIX 150 ML IV SCH (22:30)
[2018-08-14] VITALS (63 sets, daily range): BP systolic 43–162; BP diastolic 24–87
[2018-08-14] MEDS: IPRATROPIUM BROMIDE (0.02%) 0.5MG/2.5ML NEB HHN SCH ×4 (00:30→12:38)
[2018-08-14] MEDS: BLOOD SUGAR DIAGNOSTIC STRIP TEST SCH ×5 (02:00→10:00)
[2018-08-14] MEDS: HYDROCORTISONE SOD SUCCINATE 100 MG/2 ML VIAL IV SCH ×2 (02:50→10:00)
[2018-08-14] MEDS: FENTANYL CITRATE/PF 500 MCG in SODIUM CHLORIDE 0.9% 40 ML IV PRN ×2 (04:10→10:27)
[2018-08-14] MEDS: METOCLOPRAMIDE HCL 10MG/2ML VIAL IV SCH (05:12)
[2018-08-14] MEDS: NEOMY SULF/BACITRAC ZN/POLY OINT 28GM TOP SCH (05:13)
[2018-08-14 05:22] LABS: HEMATOCRIT. 23.6 % (42.0-52.0); HEMOGLOBIN. 7.3 g/dL (14.0-18.0); MEAN CORPUSCULAR HEMOGLOBIN 27.3 pg (28.0-32.0); MEAN CORPUSCULAR VOLUME 88.4 fL (80.0-94.0); MEAN PLATELET VOLUME 8.7 fl (7.4-10.4); PLATELET 335 x1000/uL (130-400); RED BLOOD CELL COUNT 2.67 mill/uL (4.7-6.1)
[2018-08-14 05:36] LABS: CHLORIDE 105 mEq/L (98-107)
[2018-08-14] MEDS ORDERED: LEVOFLOXACIN 750MG PREMIX 150 ML IV SCH (06:00)
[2018-08-14 07:45] LABS: BG BASE EXCESS 8.8 mmol/L (-2.0-2.0); BG CARBOXYHEMOGLOBIN 0.1 % (0.5-1.5); BG DEOXYHEMOGLOBIN 4.2 % (0.0-5.0); BG HCO3 ACT 36.1 mmol/L (22.0-26.0); BG METHEMOGLOBIN 0.1 % (0.0-1.5); BG OXYGEN SATURATION 95.8 % (92.0-98.5); BG OXYHEMOGLOBIN 95.6 % (94.0-97.0); BG PCO2 70.3 mmHg (35.0-45.0); BG PH 7.329 (7.350-7.450); BG PO2 88.1 mmHg (75.0-100.0); BG SAMPLE SITE RIGHT RADIAL; BG TIDAL VOLUME(mL) 550 mL; BG TOTAL HEMOGLOBIN 8.3 g/dL (12.0-18.0); BG VENT MODE VENT - A/C; BG VENT RATE 18 set
[2018-08-14] MEDS: ZINC SULFATE 220 MG ( 50 ) CAPSULE PO SCH ×2 (08:05→09:00)
[2018-08-14] MEDS: PANTOPRAZOLE SODIUM 40 MG/VIAL IV SCH (08:05)
[2018-08-14] MEDS: ACETAMINOPHEN 650MG/20.3ML UDC NG PRN (08:05)
[2018-08-14] MEDS: ASCORBIC ACID 500 MG TABLET PO SCH ×2 (08:05→09:00)
[2018-08-14] MEDS: ENOXAPARIN 30MG/0.3ML SYR SUBCUT SCH (08:05)
[2018-08-14] MEDS: VANCOMYCIN 1500MG in DEXTROSE 5% WATER 250ML IV SCH (08:06)
[2018-08-14] MEDS: SODIUM CHLORIDE 3% FOR INH 4ML UD NEB INH SCH ×2 (08:52→12:38)
[2018-08-14 09:06] LABS: HEMATOCRIT 25.9 % (42.0-52.0); HEMOGLOBIN 8.1 g/dL (14.0-18.0)
[2018-08-14 09:45] LABS: NUCLEATED RED BLOOD CELLS 1 /100 WBC; PLATELET ESTIMATE NORMAL
[2018-08-14] MEDS: MIDAZOLAM HCL 100 MG in DEXT 5% WATER 80 ML IV PRN (10:30)
[2018-08-14] MEDS: INSULIN REGULAR (DRIP) 100 UNITS in SODIUM CHLORIDE 0.9% 100 ML IV SCH (10:32)
[2018-08-14 11:18] LABS: BG BASE EXCESS 11.4 mmol/L (-2.0-2.0); BG CARBOXYHEMOGLOBIN 0.3 % (0.5-1.5); BG DEOXYHEMOGLOBIN 26.4 % (0.0-5.0); BG FRACTION INSPIRED OXYGEN 100; BG HCO3 ACT 40.7 mmol/L (22.0-26.0); BG METHEMOGLOBIN 0.4 % (0.0-1.5); BG OXYGEN SATURATION 73.4 % (92.0-98.5); BG OXYHEMOGLOBIN 72.9 % (94.0-97.0); BG PCO2 90.8 mmHg (35.0-45.0); BG PH 7.269 (7.350-7.450); BG SAMPLE SITE RIGHT RADIAL; BG TIDAL VOLUME(mL) 550 mL; BG TOTAL HEMOGLOBIN 9.3 g/dL (12.0-18.0); BG VENT MODE VENT - A/C; BG VENT RATE 22 set
[2018-08-14] MEDS ORDERED: EPINEPHRINE 1 MG in SODIUM CHLORIDE 0.9% 249 ML IV PRN (12:45)
[2018-08-14 12:54] LABS: BG CARBOXYHEMOGLOBIN 0.3 % (0.5-1.5); BG DEOXYHEMOGLOBIN 57.6 % (0.0-5.0); BG FRACTION INSPIRED OXYGEN 100; BG METHEMOGLOBIN 0.3 % (0.0-1.5); BG OXYGEN SATURATION 42.1 % (92.0-98.5); BG OXYHEMOGLOBIN 41.8 % (94.0-97.0); BG PH 6.973 (7.350-7.450); BG PO2 39.2 mmHg (75.0-100.0); BG SAMPLE SITE RIGHT RADIAL; BG TOTAL HEMOGLOBIN 8.6 g/dL (12.0-18.0); BG VENT MODE VENT - PCV; BG VENT RATE 30 set
[2018-08-14] MEDS ORDERED: EPINEPHRINE 4 MG in SODIUM CHLORIDE 0.9% 249 ML IV PRN (13:01)
[2018-08-14] MEDS ORDERED: EPINEPHRINE 4 MG in SODIUM CHLORIDE 0.9% 246 ML IV PRN (13:15)
[2018-08-14] MEDS ORDERED: SODIUM BICARBONATE 8.4% 1 MEQ/ML 50ML SYR IV ONE (13:15)
[2018-08-14] MEDS ORDERED: EPINEPHRINE 0.1MG/ML (1:10,000) 10ML SYR ONE (14:30)
[2018-08-14] MEDS ORDERED: MAGNESIUM SULFATE 4G IN WATER 100ML PREMIX IV ONE (14:30)
[2018-08-14] MEDS ORDERED: DEXTROSE 50% WATER 50ML SYRINGE IV ONE (14:30)
[2018-08-14] MEDS ORDERED: CALCIUM CHLORIDE 1GM/10ML SYR IV ONE (14:30)
[2018-08-14] MEDS ORDERED: SODIUM BICARBONATE 8.4% MEQ/ML 50ML VIAL IV ONE (14:30)
[2018-08-14] MEDS ORDERED: VANCOMYCIN 1250MG in DEXTROSE 5% WATER 250ML IV SCH (16:00)
[2018-08-14] MEDS ORDERED: TOTAL PARENTERAL NUTRITION 1,600 ML IV SCH (21:00)
[2018-08-15 13:06] LABS: DRVVT LA 56.7 sec (0.0-47.0); PTT-LA 71.5 sec (0.0-51.9)
[2018-08-16 07:11] LABS: DRVVT MIX LA 42.1 sec (0.0-47.0); HEXAGONAL PHASE PHOSPHOLIPID 15 sec (0-11); LUPUS ANTICOAG INTERPRETATION Comment: (.); PTT-LA MIX 62.2 sec (0.0-48.9)
== END 2018-08-14 13:47 | disposition expired | DRG 720 ==
LOC: ER 09:16 → MICUNO 12:03 → EDBEDREQ 12:08 → ENRESERV 15:10 → MICUNO 07-29 13:25 → 3WST 08-05 02:12 → 6WST 08-07 02:42 → 5EST 08-08 14:14 → MICUSO 08-08 16:05
PROVIDERS: ADMIT Internal Medicine; ATTEND Internal Medicine
PROC: 5A1955Z Respiratory Ventilation, Greater than 96 Consecutive Hours (ICD-10-PCS; 2018-07-22)
PROC: 02HV33Z Insertion of Infusion Device into Superior Vena Cava, Percutaneous Approach (ICD-10-PCS; 2018-07-22)
PROC: B548ZZA Ultrasonography of Superior Vena Cava, Guidance (ICD-10-PCS; 2018-07-22)
PROC: 5A1935Z Respiratory Ventilation, Less than 24 Consecutive Hours (ICD-10-PCS; 2018-07-22)
PROC: 5A1935Z Respiratory Ventilation, Less than 24 Consecutive Hours (ICD-10-PCS; 2018-07-25)
PROC: 5A1935Z Respiratory Ventilation, Less than 24 Consecutive Hours (ICD-10-PCS; 2018-07-26)
PROC: 4A00X4Z Measurement of Central Nervous Electrical Activity, External Approach (ICD-10-PCS; 2018-07-26)
PROC: 4A00X4Z Measurement of Central Nervous Electrical Activity, External Approach (ICD-10-PCS; 2018-07-27)
PROC: 30233N1 Transfusion of Nonautologous Red Blood Cells into Peripheral Vein, Percutaneous Approach (ICD-10-PCS; 2018-07-28)
PROC: 5A1935Z Respiratory Ventilation, Less than 24 Consecutive Hours (ICD-10-PCS; 2018-07-28)
PROC: 0BH17EZ Insertion of Endotracheal Airway into Trachea, Via Natural or Artificial Opening (ICD-10-PCS; 2018-07-28)
PROC: 5A1935Z Respiratory Ventilation, Less than 24 Consecutive Hours (ICD-10-PCS; 2018-07-29)
PROC: 5A1935Z Respiratory Ventilation, Less than 24 Consecutive Hours (ICD-10-PCS; 2018-07-31)
PROC: 5A1935Z Respiratory Ventilation, Less than 24 Consecutive Hours (ICD-10-PCS; 2018-08-01)
PROC: 5A09357 Assistance with Respiratory Ventilation, Less than 24 Consecutive Hours, Continuous Positive Airway Pressure (ICD-10-PCS; 2018-08-08)
PROC: 0BH17EZ Insertion of Endotracheal Airway into Trachea, Via Natural or Artificial Opening (ICD-10-PCS; 2018-08-08)
PROC: 5A1935Z Respiratory Ventilation, Less than 24 Consecutive Hours (ICD-10-PCS; 2018-08-09)
PROC: 5A1945Z Respiratory Ventilation, 24-96 Consecutive Hours (ICD-10-PCS; 2018-08-10)
PROC: 02HV33Z Insertion of Infusion Device into Superior Vena Cava, Percutaneous Approach (ICD-10-PCS; 2018-08-11)
PROC: B548ZZA Ultrasonography of Superior Vena Cava, Guidance (ICD-10-PCS; 2018-08-11)
PROC: 5A1935Z Respiratory Ventilation, Less than 24 Consecutive Hours (ICD-10-PCS; 2018-08-13)
PROC: 5A12012 Performance of Cardiac Output, Single, Manual (ICD-10-PCS; principal; 2018-08-14)
DX: A41.50 Gram-negative sepsis, unspecified (principal); I46.9 Cardiac arrest, cause unspecified; I21.4 Non-ST elevation (NSTEMI) myocardial infarction; I63.9 Cerebral infarction, unspecified; J69.0 Pneumonitis due to inhalation of food and vomit; J96.01 Acute respiratory failure with hypoxia; G03.9 Meningitis, unspecified; E43 Unspecified severe protein-calorie malnutrition; G92 Toxic encephalopathy; E11.10 Type 2 diabetes mellitus with ketoacidosis without coma; R65.21 Severe sepsis with septic shock; G93.1 Anoxic brain damage, not elsewhere classified; D50.9 Iron deficiency anemia, unspecified; E87.0 Hyperosmolality and hypernatremia; E83.39 Other disorders of phosphorus metabolism; E87.6 Hypokalemia; E87.8 Other disorders of electrolyte and fluid balance, not elsewhere classified; K85.90 Acute pancreatitis without necrosis or infection, unspecified; E66.01 Morbid (severe) obesity due to excess calories; E78.1 Pure hyperglyceridemia; E87.1 Hypo-osmolality and hyponatremia; E87.3 Alkalosis; E87.5 Hyperkalemia; I25.2 Old myocardial infarction; M62.82 Rhabdomyolysis; N17.9 Acute kidney failure, unspecified; R13.10 Dysphagia, unspecified; Z78.1 Physical restraint status; Z83.3 Family history of diabetes mellitus; Z79.4 Long term (current) use of insulin; Z86.73 Personal history of transient ischemic attack (TIA), and cerebral infarction without residual deficits; H66.93 Otitis media, unspecified, bilateral; K22.3 Perforation of esophagus; J98.2 Interstitial emphysema; E11.65 Type 2 diabetes mellitus with hyperglycemia; G25.9 Extrapyramidal and movement disorder, unspecified; G82.20 Paraplegia, unspecified; L89.329 Pressure ulcer of left buttock, unspecified stage; L89.319 Pressure ulcer of right buttock, unspecified stage; E86.0 Dehydration; Z68.31 Body mass index [BMI] 31.0-31.9, adult
CPT/HCPCS: 31500; 36415; 36556; 36569; 36600; 70551; 71045; 71250; 74018; 74176; 76937; 80048; 80202; 80305; 80320; 82010; 82140; 82164; 82270; 82375; 82550; 82553; 82595; 82805; 82962; 83010; 83036; 83520; 83605; 83615; 83721; 83735; 83880; 83930; 83935; 84100; 84132; 84133; 84134; 84145; 84439; 84443; 84450; 84460; 84478; 84481; 84484; 85014; 85018; 85044; 85379; 85384; 85613; 85651; 85732; 86038; 86140; 86147; 86225; 86235; 86256; 86606; 86850; 86900; 86920; 87070; 87077; 87186; 87804; 92610; 93005; 93306; 93970; 94002; 94003; 94640; 94667; 96365; 96366; 96375; 97112; 97163; 97167; 97530; 99291; A6261; C1725; C9113; J0290; J0330; J0692; J0696; J1100; J1450; J1644; J1650; J1720; J1815; J1956; J2060; J2185; J2250; J2270; J2370; J2597; J2704; J2765; J2930; J3010; J3370; J3475; J3480; J3490; J7030; J7040; J7042; J7050; J7060; J7070; J7608; J7620; P9016; P9047; G0480